=== PATIENT | male | born 1960 | race Caucasian/White ===

== ENCOUNTER 2017-10-03 14:01 | Inpatient (IN) ==
[2017-10-03] MEDS ORDERED: 0.9 % SODIUM CHLORIDE 1,000 ML IV ONE (14:28)
[2017-10-03 14:56] LABS: Mean Corpuscular HGB Conc 33.9 g/dL (31.0-36.0); Mean Corpuscular Hemoglobin 30.5 pg (26.0-34.0); Platelet Count 179 K/mcL (140-440); RBC 4.64 M/mcL (4.50-5.90); Red Cell Distribution Width 12.9 % (11.5-14.5)
--- NOTE | 2017-10-03 15:22 | XRay Report ---
CLINICAL INFORMATION: Cough and shortness of breath COMPARISON: None. FINDINGS: Heart size, mediastinum and pulmonary vessels are normal. Small focal infiltrate has developed in the posterior lateral right lower lobe. Minor bibasilar atelectasis noted . No effusions. Bones and soft tissues are normal. IMPRESSION: Small infiltrate developing in the posterior lateral right lower lobe Interpreted and Authenticated by: Aravind Gonzalez 10/03/17
[2017-10-03] MEDS ORDERED: cefTRIAXone 1 GM VIAL IV ONE (15:25)
[2017-10-03] MEDS ORDERED: AZITHROMYCIN 500 MG in DEXTROSE 5% IN WATER 250 ML IV SCH (15:30)
[2017-10-03 15:37] LABS: ALT/SGPT 34 U/l (0-40); Albumin 3.7 gm/dL (3.2-5.2); Albumin/Globulin Ratio 0.9 (1.0-2.3); Alkaline Phosphatase 97 U/L (39-117); Blood Urea Nitrogen 13 mg/dl (6-20)
[2017-10-03] MEDS ORDERED: AZITHROMYCIN 500 MG VIAL IV ONE (15:39)
[2017-10-03 15:51] LABS: Band Neutrophils % 6 % (0-10); Lymphocytes % 16 % (15-49); Monocytes % (Manual) 7 % (1-12); Platelet Estimate NORMAL (NORMAL); RBC Morphology NORMAL (NORMAL); Segmented Neutrophils % 71 % (38-78)
[2017-10-03] MEDS ORDERED: AZITHROMYCIN 500 MG in 0.9 % SODIUM CHLORIDE 250 ML IV ONE (16:00)
[2017-10-03] MEDS ORDERED: INSULIN REGULAR, HUMAN 1 UNIT/0.01 ML UNIT IV ONE (16:16)
--- NOTE | 2017-10-03 17:00 | Internal Med History&Physical ---
Medical - H&P: [facility] Patient information: Note initiated : 10/03/17 at 4:58 pm Service Date, if different from initiated Date: [] Patient: Leonides Stoner 57 y/o M admitted on for shortness of breath, low O2 sat. Chief Complaint: Cough, sputum production, shortness of breath History of present illness: The patient's 58-year-old male with a history of type 2 diabetes on insulin and metformin, treated hypertension, treated hypercholesterolemia, treated hypothyroidism and presents with pulmonary illness. Patient had the onset of symptoms on September 29, cardiac chest cold with a sore throat. He felt feverish, had a temperature to 100.7 at one point when he checked it at home. He was having chills. During this time he developed a cough which is now productive of brownish/greenish sputum. Yesterday he started feeling short of breath. He presents to [facility] care today, was referred to the emergency department. In the emergency department, evaluation revealed hypoxia, room air saturations 87%, increased to 92% on 2 L. He did not have a leukocytosis, but had a mild bandemia and on chest radiograph had a developing right lower lobe infiltrate. He's being hospitalized for treatment of pneumonia and acute hypoxic respiratory failure. Patient has a cough productive of sputum is noted. His chest is felt a bit tight due to dyspnea over the last day. She had no lower extremity edema, no orthopnea. She had some nausea today without emesis. Started having loose stools today as well. Sugars been running high, he ran out of his Lantus the last few days while he was ill and had not gotten it refilled. He has no history of underlying lung disease. No history of cardiac disease. He has not received flu shot this year. Review of systems: Except as noted in history of present illness, the remainder of 11.2 systems is negative Medical - H&P: PMH Medical history: Hypothyroidism (Acute) Type II diabetes mellitus (Acute) Hypertension (Acute) Hyperlipidemia (Acute) Hypovitaminosis D (Acute) Degeneration of lumbar or lumbosacral intervertebral disc (Chronic) Surgical history: No pertinent past surgical history (Acute) Pertinent family history: Mother Diabetes mellitus Cerebrovascular accident (CVA) Brother Diabetes mellitus Unknown Heart problem Dementia Depressive disorder Macular degeneration Malignant neoplasm Grandmother (Paternal) Alzheimer's disease Grandfather (Paternal) Malignant neoplasm of colon Father Atherosclerosis of coronary artery Cardiac disease Heart valve disease Grandmother (Maternal) Diabetes mellitus Social history: The patient lives alone. Has remote tobacco use, none for many years. Occasionally drinks alcohol. Medical - H&P: Meds Home Medications Medication Instructions Recorded Confirmed Type levothyroxine 50 mcg tablet 50 mcg PO QDAY #60 tab 02/26/16 10/03/17 Rx lisinopril 5 mg tablet 5 mg PO QDAY #60 tab 02/26/16 10/03/17 Rx atorvastatin 10 mg tablet 10 mg PO QDAY #60 tab 03/09/16 10/03/17 Rx cholecalciferol (vitamin D3) 2,000 2,000 unit PO QDAY 03/09/16 10/03/17 History unit capsule insulin glargine 100 unit/mL (3 20 unit SUB-Q QAM #3 ml 03/09/16 10/03/17 Rx mL) subcutaneous pen metformin ER 1,000 mg 24 hr 1,000 mg PO BID #120 tab 03/09/16 10/03/17 Rx tablet,extended release pen needle, diabetic 32 gauge x See Dose Instructions .ROUTE 03/09/16 10/03/17 Rx 5/32" .MEDSUPPLY #100 each Allergies Allergy/AdvReac Type Severity Reaction Status Date / Time Penicillins Allergy Unknown Unknown Verified 10/03/17 13:43 Medical - H&P: Exam - Constitutional Vitals: Temp Pulse Resp BP Pulse Ox 98.9 F 107 H 21 137/91 85 L 10/03/17 14:02 10/03/17 14:02 10/03/17 14:24 10/03/17 14:24 10/03/17 14:02 Exam: General: Alert, in no acute distress HEENT: Normocephalic. Pupils are equally round and reactive to light. Sclera are anicteric. No conjunctival injection. Oropharynx with injection of the posterior pharynx, no exudate. Moist mucous membranes, no lip or gum lesions. Tongue is midline. Neck: Supple, no meningismus. No thyromegaly. Chest: Respirations mildly labored, rhonchi in the right lower lobe, coarse breath sounds with occasional expiratory wheeze. Cardiovascular: Regular rate and rhythm without murmur gallop or rub. Carotid pulses are 2+ without bruit. There is no lower extremity edema. JVP is normal. Abdomen: Soft, nontender without guarding or rebound. Active bowel sounds. No hepatosplenomegaly. Lymphatic: No cervical or supraclavicular lymphadenopathy. Skin: Warm, dry. No rash. Skin turgor is normal Musculoskeletal: No joint erythema or tenderness. Normal range of motion in the upper and lower extremities. Strength 5/5 in upper and lower extremities. Digits without cyanosis or clubbing. Neuro: Alert, oriented X3. Cranial nerves II through XII grossly intact. Sensation intact to light touch. Psychiatric: Affect and orientation are normal. Insight normal. Medical - H&P: Reslt - Labs CBC & Chem 7: 10/03/17 14:25 10/03/17 14:25 Labs: Laboratory Results - last 24 hr 10/03/17 10/03/17 10/03/17 14:25 14:25 14:25 WBC 10.3 RBC 4.64 Hgb 14.2 Hct 41.8 MCV 90.0 MCH 30.5 MCHC 33.9 RDW 12.9 Plt Count 179 MPV 7.6 Total Counted 100 Seg Neutrophils % 71 Band Neutrophils % 6 Lymphocytes % 16 Monocytes % (Manual) 7 Platelet Estimate Normal RBC Morphology Normal D-Dimer VBG Lactic Acid 1.5 Sodium 133 Potassium 4.4 Chloride 91 L Carbon Dioxide 23 Anion Gap 19.0 H BUN 13 Creatinine 0.9 GFR Calculation 96 Glucose 475 H* Calcium 9.2 Total Bilirubin 0.5 AST 26 ALT 34 Alkaline Phosphatase 97 Total Protein 7.7 Albumin 3.7 Globulin 4.0 H Albumin/Globulin Ratio 0.9 L 10/03/17 10/03/17 14:25 14:25 WBC RBC Hgb Hct MCV MCH MCHC RDW Plt Count MPV Total Counted Not Reportable Seg Neutrophils % TNP Band Neutrophils % Not Reportable Lymphocytes % Monocytes % (Manual) Platelet Estimate Not Reportable RBC Morphology Not Reportable D-Dimer 1.00 H VBG Lactic Acid Sodium Potassium Chloride Carbon Dioxide Anion Gap BUN Creatinine GFR Calculation Glucose Calcium Total Bilirubin AST ALT Alkaline Phosphatase Total Protein Albumin Globulin Albumin/Globulin Ratio - ABG Interpretation Interpretation: abnormal (hypoxia, PaO2 75 on 2 lpm NC) - EKG Data -: EKG Reviewed by Myself (sinus rhythm at 99 bpm, no acute injury pattern. Normal intervals and axis) - Imaging and Cardiology Chest x-ray Status: image reviewed by me (radiology read: Developing right lower lobe infiltrate.) Medical - H&P: A/P (1) Pneumonia Current visit: Yes Status: Acute (2) Acute respiratory failure with hypoxia Current visit: Yes Status: Acute (3) Hypothyroidism Current visit: Yes Status: Chronic (4) Type II diabetes mellitus Current visit: Yes Status: Chronic (5) Hypertension Current visit: Yes Status: Chronic (6) Hyperlipidemia Current visit: Yes Status: Chronic - Narrative A/P Narrative: 57-year-old male with diabetes, presents with approximate 6 days of pulmonary symptoms at her progressed with dyspnea, cough and sputum production. Pneumonia. Has developing right lower lobe infiltrate. Heart rate is normal, no fever here. White count is normal though a 6% bandemia. Does not meet meet criteria for SIRS or sepsis. Lactate is normal. Suspect community-acquired pneumonia. Associated with respiratory failure and hypoxia. Plan 1. Inpatient admission 2. Continue ceftriaxone and azithromycin 3. Follow-up cultures 4. Since sputum culture 5. Influenza vaccine before discharge Acute hypoxic respiratory failure. Secondary to pneumonia. No history of intrinsic lung disease. D-dimer is 1.0, though lower suspicion for pulmonary and wasn't given plausible alternative explanation for symptoms with this acute pulmonary illness. Wells score is 0. Plan: Supplemental oxygen as needed to maintain sats above 92, treated pneumonia. Hypertension. Unknown control at home. On low-dose lisinopril. Plan: Resume home medications when reconciled, for low blood pressure. Type 2 diabetes mellitus. Poor control of presentation. Has not been to see his PCP for over a year. Not sure his baseline control. He did run out of Lantus a few days ago which does explain part of his elevated glucose. On metformin at home as well. Plan: Continue with Lantus, sliding scale insulin, controlled carbohydrate diet , hold metformin and acute illness. Hyperlipidemia Plan: Continue with home medication. Hypothyroidism. On levothyroxine home. Plan: Continue levothyroxine, check TSH. CODE STATUS is discussed with patient, he is full code. Prophylaxis: PPI and Lovenox.
[2017-10-03] MEDS ORDERED: ONDANSETRON 4 MG/2 ML VIAL IV PRN (18:23)
[2017-10-03] MEDS ORDERED: DEXTROSE 50% 50 ML VIAL IV PRN (18:23)
[2017-10-03] MEDS ORDERED: ACETAMINOPHEN 325 MG TABLET PO PRN (18:23)
[2017-10-03] MEDS ORDERED: DEXTROSE 31 GM ORAL.SUSP PO PRN (18:23)
[2017-10-03] MEDS ORDERED: ALBUTEROL SULFATE 2.5 MG/3 ML NEBULIZER NEB PRN (18:23)
[2017-10-03] MEDS: 0.9 % SODIUM CHLORIDE 1,000 ML IV SCH (19:21)
[2017-10-03] MEDS: ALBUTEROL SULFATE 2.5 MG/3 ML NEBULIZER NEB SCH ×2 (19:22→23:05)
[2017-10-03] MEDS ORDERED: ALBUTEROL SULFATE 2.5 MG/3 ML NEBULIZER ONE (19:26)
[2017-10-03] MEDS: INSULIN LISPRO 1 UNIT/0.01 ML UNIT SQ SCH ×2 (19:32→21:52)
[2017-10-03] MEDS ORDERED: INSULIN LISPRO 1 UNIT/0.01 ML UNIT SQ ONE (19:40)
[2017-10-04 00:07] LABS: Hemoglobin A1C 14.2 % HGB (4.0-6.0)
[2017-10-04] MEDS: 0.9 % SODIUM CHLORIDE 1,000 ML IV SCH ×3 (05:34→22:50)
[2017-10-04 06:49] LABS: Mean Cell Volume 90.5 fL (80.0-100.0); Mean Corpuscular HGB Conc 33.4 g/dL (31.0-36.0); Mean Corpuscular Hemoglobin 30.3 pg (26.0-34.0); Platelet Count 164 K/mcL (140-440); Red Cell Distribution Width 13.1 % (11.5-14.5)
[2017-10-04] MEDS: ALBUTEROL SULFATE 2.5 MG/3 ML NEBULIZER NEB SCH ×5 (07:09→23:19)
[2017-10-04 07:13] LABS: Blood Urea Nitrogen 11 mg/dl (6-20)
[2017-10-04 07:40] LABS: Lymphocytes % 18 % (15-49); Monocytes % (Manual) 10 % (1-12); Platelet Estimate NORMAL (NORMAL); RBC Morphology NORMAL (NORMAL); Segmented Neutrophils % 72 % (38-78)
--- NOTE | 2017-10-04 08:05 | Emergency Department Note ---
General Adult HPI - General Chief complaint: Shortness of Breath/Dyspnea Stated complaint: shortness of breath, low O2 sat Time Seen by Provider: 10/03/17 14:34 Source: patient Mode of arrival: ambulatory Limitations: no limitations - History of Present Illness HPI Narrative: Patient referred over from [facility] for workup patient was running low sats in the high 80s. Is been feeling feverish E cough with some shortness of breath. Is been present for approximately 3 days. Patient is a non-smoker has no history of asthma or COPD had no nausea vomiting or diarrhea no hematemesis no melena.. The patient is afebrile his sats did go up to 90-93% with 2 L of O2 - Related Data Home Medications Medication Instructions Recorded Confirmed cholecalciferol (vitamin D3) 2,000 2,000 unit PO QDAY 03/09/16 10/03/17 unit capsule Pen Needle, Diabetic [Unifine 1 SQ QDAY 10/03/17 Pentips Plus] Previous Rx's Medication Instructions Recorded levothyroxine 50 mcg tablet 50 mcg PO QDAY #60 tab 02/26/16 lisinopril 5 mg tablet 5 mg PO QDAY #60 tab 02/26/16 atorvastatin 10 mg tablet 10 mg PO QDAY #60 tab 03/09/16 insulin glargine 100 unit/mL (3 20 unit SUB-Q QAM #3 ml 03/09/16 mL) subcutaneous pen metformin ER 1,000 mg 24 hr 1,000 mg PO BID #120 tab 03/09/16 tablet,extended release Allergies Allergy/AdvReac Type Severity Reaction Status Date / Time Penicillins Allergy Unknown Unknown Verified 10/03/17 13:43 Review of Systems All systems ED: reviewed and negative except as stated. Constitutional: Reports: other. Denies: fever, chills Eyes: Denies: eye pain (Malaise achiness) ENT ED: Denies: ear pain Cardiovascular: Denies: chest pain, palpitations Respiratory: Reports: shortness of breath, cough. Denies: wheezes Gastrointestinal: Denies: abdominal pain, nausea, vomiting Genitourinary: Denies: dysuria, frequency Musculoskeletal: Denies: back pain Integumentary: Denies: rash Neurological: Denies: headache Psychiatric: Denies: anxiety Endocrine: Denies: fatigue Hematological/Lymphatic: Denies: easy bleeding Allergic/Immunologic: Denies: facial swelling Past Medical History - Past Medical History Medical history: Reports: non-contributory Surgical history ED: Reports: non-contributory Family history: Reports: non-contributory - Social History smoking status: Never smoker Alcohol use: Reports: Rarely Drug use: Reports: none Physical Exam Limitations: no limitations General appearance: alert, anxious Head: atraumatic Eye: Present: normal appearance, PERRL ENT: normal exam, normal oropharynx, mucous membranes moist Neck: Present: normal inspection, full ROM, trachea midline Chest: Present: normal inspection, symmetric chest wall rise. Absent: tenderness Respiratory: Present: normal lung sounds bilaterally. Absent: wheezes, stridor Cardiovascular: Present: regular rate, normal rhythm. Absent: bradycardia, tachycardia Abdominal: Present: soft, normal bowel sounds. Absent: distention, tenderness, guarding, rebound, rigidity Extremities: Present: normal inspection, full ROM. Absent: tenderness Back: Present: normal inspection, full ROM, muscle spasm. Absent: tenderness, CVA tenderness (R), CVA tenderness (L) Neurological: Present: alert, oriented X3, CN II-XII intact Psychiatric: Present: normal affect, normal mood. Absent: depressed, agitated Skin: Present: warm, dry, intact Course Vital Signs Temperature 98.9 F 10/03/17 14:02 Pulse Rate 107 H 10/03/17 14:02 Respiratory Rate 30 H 10/03/17 14:02 Blood Pressure 113/74 10/03/17 14:02 Pulse Oximetry (%) 85 L 10/03/17 14:02 Temperature 98.4 F 10/04/17 07:52 Pulse Rate 80 10/04/17 07:44 Respiratory Rate 24 H 10/04/17 07:52 Blood Pressure 125/70 10/04/17 07:52 Pulse Oximetry (%) 89 L 10/04/17 07:52 Medical Decision Making - MDM Narrative Medical decision making narrative: His x-ray shows right lower lobe infiltrate. Diabetes 475 patient was given insulin. Take was only 1.5 has not been hypotensive. Required O2 for saturations at 92-93%. Frank contacted patient to be admitted for pneumonia his influenza test was positive influenza B - Lab Data Result diagrams: 10/04/17 04:08 10/04/17 04:08 Lab Results 10/03/17 10/03/17 10/03/17 Range/Units 14:25 14:25 14:25 WBC 10.3 (4.5-11.0) K/mcL RBC 4.64 (4.50-5.90) M/mcL Hgb 14.2 (13.5-16.5) g/dL Hct 41.8 (41.0-55.0) % MCV 90.0 (80.0-100.0) fL MCH 30.5 (26.0-34.0) pg MCHC 33.9 (31.0-36.0) g/dL RDW 12.9 (11.5-14.5) % Plt Count 179 (140-440) K/mcL MPV 7.6 (7.4-10.4) fL Total Counted 100 Seg Neutrophils % 71 (38-78) % Band Neutrophils % 6 (0-10) % Lymphocytes % 16 (15-49) % Monocytes % (Manual) 7 (1-12) % Platelet Estimate Normal (NORMAL) RBC Morphology Normal (NORMAL) D-Dimer (0.00-0.40) ug/ml VBG Lactic Acid 1.5 (0.5-2.2) mmol/L Sodium 133 (133-145) mmol/L Potassium 4.4 (3.3-5.1) mmol/L Chloride 91 L (96-108) mmol/L Carbon Dioxide 23 (22-30) mmol/L Anion Gap 19.0 H (8-16) BUN 13 (6-20) mg/dl Creatinine 0.9 (0.7-1.2) mg/dl GFR Calculation 96 Glucose 475 H* (70-105) mg/dL Hemoglobin A1c (4.0-6.0) % HGB Estim Average Glucose mg/dL Calcium 9.2 (8.6-10.4) mg/dl Total Bilirubin 0.5 (0.0-1.0) mg/dL AST 26 (0-37) U/l ALT 34 (0-40) U/l Alkaline Phosphatase 97 (39-117) U/L Total Protein 7.7 (5.9-8.4) gm/dL Albumin 3.7 (3.2-5.2) gm/dL Globulin 4.0 H (2.2-3.7) gm/dL Albumin/Globulin Ratio 0.9 L (1.0-2.3) 10/03/17 10/03/17 10/03/17 Range/Units 14:25 14:25 14:25 WBC (4.5-11.0) K/mcL RBC (4.50-5.90) M/mcL Hgb (13.5-16.5) g/dL Hct (41.0-55.0) % MCV (80.0-100.0) fL MCH (26.0-34.0) pg MCHC (31.0-36.0) g/dL RDW (11.5-14.5) % Plt Count (140-440) K/mcL MPV (7.4-10.4) fL Total Counted Not Reportable Seg Neutrophils % TNP (38-78) % Band Neutrophils % Not Reportable (0-10) % Lymphocytes % (15-49) % Monocytes % (Manual) (1-12) % Platelet Estimate Not Reportable (NORMAL) RBC Morphology Not Reportable (NORMAL) D-Dimer 1.00 H (0.00-0.40) ug/ml VBG Lactic Acid (0.5-2.2) mmol/L Sodium (133-145) mmol/L Potassium (3.3-5.1) mmol/L Chloride (96-108) mmol/L Carbon Dioxide (22-30) mmol/L Anion Gap (8-16) BUN (6-20) mg/dl Creatinine (0.7-1.2) mg/dl GFR Calculation Glucose (70-105) mg/dL Hemoglobin A1c 14.2 H (4.0-6.0) % HGB Estim Average Glucose 361 mg/dL Calcium (8.6-10.4) mg/dl Total Bilirubin (0.0-1.0) mg/dL AST (0-37) U/l ALT (0-40) U/l Alkaline Phosphatase (39-117) U/L Total Protein (5.9-8.4) gm/dL Albumin (3.2-5.2) gm/dL Globulin (2.2-3.7) gm/dL Albumin/Globulin Ratio (1.0-2.3) Disposition 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
[2017-10-04] MEDS: INSULIN LISPRO 1 UNIT/0.01 ML UNIT SQ SCH ×4 (09:14→21:19)
[2017-10-04] MEDS: ENOXAPARIN 40 MG/0.4 ML SYRINGE SQ SCH (09:15)
[2017-10-04] MEDS: PANTOPRAZOLE 40 MG TABLET PO SCH (09:15)
[2017-10-04] MEDS: ATORVASTATIN 20 MG TABLET PO SCH (09:15)
[2017-10-04] MEDS: LEVOTHYROXINE 50 MCG TABLET PO SCH (09:15)
[2017-10-04] MEDS: LISINOPRIL 5 MG TABLET PO SCH (09:16)
--- NOTE | 2017-10-04 09:51 | Internal Med Progress Note ---
Medical - PN: Subj Patient information: Note initiated : 10/04/17 at 9:49 am Service Date, if different from initiated Date: [] Patient: Leonides Stoner 57 y/o M admitted on 10/03/17 for shortness of breath, low O2 sat. Chief Complaint: Follow up pneumonia Interval history: Oct 03 The patient's 58-year-old male with a history of type 2 diabetes on insulin and metformin, treated hypertension, treated hypercholesterolemia, treated hypothyroidism and presents with pulmonary illness. Patient had the onset of symptoms on September 29, cardiac chest cold with a sore throat. He felt feverish, had a temperature to 100.7 at one point when he checked it at home. He was having chills. During this time he developed a cough which is now productive of brownish/greenish sputum. Yesterday he started feeling short of breath. He presents to [facility] care today, was referred to the emergency department. In the emergency department, evaluation revealed hypoxia, room air saturations 87%, increased to 92% on 2 L. He did not have a leukocytosis, but had a mild bandemia and on chest radiograph had a developing right lower lobe infiltrate. He's being hospitalized for treatment of pneumonia and acute hypoxic respiratory failure. Patient has a cough productive of sputum is noted. His chest is felt a bit tight due to dyspnea over the last day. She had no lower extremity edema, no orthopnea. She had some nausea today without emesis. Started having loose stools today as well. Sugars been running high, he ran out of his Lantus the last few days while he was ill and had not gotten it refilled. He has no history of underlying lung disease. No history of cardiac disease. He has not received flu shot this year. Oct 04 Starting to feel better today. Less dyspnea. Still with productive cough of purulent-appearing sputum. Sputum samples been sent to the lab. Had low-grade fever last night. Still requiring oxygen. - Constitutional Vitals: Vital Signs Temp Pulse Resp BP Pulse Ox 98.4 F 91 H 24 H 125/70 89 L 10/04/17 07:52 10/04/17 08:00 10/04/17 07:52 10/04/17 07:52 10/04/17 08:00 Period Temp Pulse Resp BP Sys/Pressley Pulse Ox Last 24 Hr 98.4 F-99.8 F 80-107 16-30 113-152/68-91 85-94 Intake and Output 10/03/17 10/04/17 10/04/17 21:59 05:59 13:59 Intake Total 1000 / 1000 1690 / 1690 Balance 1000 / 1000 1690 / 1690 Weight 275 lb 4.8 oz Intake & Output: Intake & Output 10/03/17 10/04/17 10/04/17 21:59 05:59 13:59 Intake Total 1000 / 1000 1690 / 1690 Balance 1000 / 1000 1690 / 1690 Weight 275 lb 4.8 oz Intake: IV 1000 / 1000 1000 / 1000 Sodium Chloride 0.9% 1,000 ml @ 1000 / 1000 1000 / 1000 100 mls/hr IV .Q10H [facility] Rx#: [id number] Oral 690 / 690 Exam: General: Mildly ill-appearing Chest: Faint right lower rales, otherwise clear, no wheezing today Cardiovascular: Regular, no edema Abdomen: Soft, nontender, active bowel sounds Neuro: Alert, oriented 3. KENNEY with equal strength. Nonfocal. Medical - PN: Obj Da - Labs CBC & Chem 7: 10/04/17 04:08 10/04/17 04:08 Labs: Abnormal Lab Results 10/04/17 10/04/17 10/03/17 04:08 04:08 14:25 RBC 3.90 L Hgb 11.8 L Hct 35.3 L D-Dimer Chloride Anion Gap Glucose 227 H Hemoglobin A1c 14.2 H Calcium 8.5 L Globulin Albumin/Globulin Ratio 10/03/17 10/03/17 14:25 14:25 RBC Hgb Hct D-Dimer 1.00 H Chloride 91 L Anion Gap 19.0 H Glucose 475 H* Hemoglobin A1c Calcium Globulin 4.0 H Albumin/Globulin Ratio 0.9 L Microbiology 10/03/17 20:30 Gram Stain - Final Sputum - Expectorated Meds: Medications Acetaminophen (Tylenol) 650 mg PO Q6HP PRN PRN Reason: PAIN/FEVER > 101 Albuterol Sulfate (Ventolin) 2.5 mg NEB [id number] [facility] Last Admin: 10/04/17 07:09 Dose: 2.5 mg Albuterol Sulfate (Ventolin) 2.5 mg NEB Q2HP PRN PRN Reason: Shortness Of Breath Atorvastatin Calcium (Lipitor) 10 mg PO DAILY [facility] Last Admin: 10/04/17 09:15 Dose: 10 mg Ceftriaxone Sodium (Rocephin) 1 gm IV Q24H [facility] Dextrose (Dextrose 50%) 0 ml IV UD PRN PRN Reason: Hypoglycemia Diagnostic Test (Pha) (Accu-Chek) 1 each FS ACHS [facility] Last Admin: 10/04/17 09:14 Dose: 1 each Enoxaparin Sodium (Lovenox) 40 mg SQ DAILY [facility] Last Admin: 10/04/17 09:15 Dose: 40 mg Glucose (Insta-Glucose) 15 gm PO PRN PRN PRN Reason: Hypoglycemia Azithromycin 500 mg/ Sodium (Chloride) 250 mls @ 250 mls/hr IV Q24H [facility] Stop: 10/06/17 10:59 Sodium Chloride (Sodium Chloride 0.9%) 1,000 mls @ 100 mls/hr IV .Q10H [facility] Last Admin: 10/04/17 05:34 Dose: 100 mls/hr Insulin Glargine (Lantus) 20 unit SQ [facility] Insulin Human Lispro (Humalog) 0 unit SQ [facility] PRN Reason: Protocol Last Admin: 10/04/17 09:14 Dose: 8 unit [facility]) [facility] Admin: 10/04/17 09:15 Dose: 50 mcg Lisinopril (Zestril) 5 mg PO QDAY [facility] Last Admin: 10/04/17 09:16 Dose: 5 mg Ondansetron HCl (Zofran) 4 mg IV Q4HP PRN PRN Reason: Nausea And Vomiting Pantoprazole Sodium (Protonix) 40 mg PO [facility] Last Admin: 10/04/17 09:15 Dose: 40 mg Pneumococcal Polyvalent Vaccine (Pneumovax 23) 0.5 ml IM .ONCE ONE Stop: 10/05/17 10:01 Medical - PN: A/P - Time Spent With Patient Total time spent is greater than 50% in coordination of care (as documented) at patient's floor/unit and/or counseling patient: 25 - 35 minutes (1) Pneumonia Status: Acute Current Visit: Yes (2) Acute respiratory failure with hypoxia Status: Acute Current Visit: Yes (3) Hypothyroidism Status: Chronic Current Visit: Yes (4) Type II diabetes mellitus Status: Chronic Current Visit: Yes (5) Hypertension Status: Chronic Current Visit: Yes (6) Hyperlipidemia Status: Chronic Current Visit: Yes - Narrative A/P Narrative: 57-year-old male with diabetes, presents with approximate 6 days of pulmonary symptoms at her progressed with dyspnea, cough and sputum production. Pneumonia. Has developing right lower lobe infiltrate. Heart rate is normal, no fever here. White count is normal though a 6% bandemia. Does not meet meet criteria for SIRS or sepsis. Lactate is normal. Suspect community-acquired pneumonia. Associated with respiratory failure and hypoxia. Improving 10/04. Plan: Continue ceftriaxone and azithromycin, follow-up cultures and sputum sample; influenza vaccine and pneumovax before discharge Acute hypoxic respiratory failure. Secondary to pneumonia. No history of intrinsic lung disease. Plan: Supplemental oxygen as needed to maintain sats above 92, treat pneumonia. Hypertension. Unknown control at home. On low-dose lisinopril. Plan: Resume home medications when reconciled, hold for low blood pressure. Type 2 diabetes mellitus. Poor control of presentation. Has not been to see his PCP for over a year. HbA1c 14.2, indicating poor control. He did run out of Lantus a few days ago which does explain part of his elevated glucose. On metformin at home as well. Plan: Continue with Lantus, sliding scale insulin, controlled carbohydrate diet , hold metformin and acute illness. clinical systems educator referral. Hyperlipidemia Plan: Continue with home medication. Hypothyroidism. On levothyroxine home, euthyroid on replacement Plan: Continue levothyroxine Medical - PN: Qual - VTE Deep Vein Thrombosis/Pulmonary Embolism Present on Admission: No
[2017-10-04] MEDS: INSULIN GLARGINE, HUMAN 1 UNIT/0.01 ML SQ SCH (10:21)
[2017-10-04] MEDS: AZITHROMYCIN 500 MG in 0.9 % SODIUM CHLORIDE 250 ML IV SCH (10:48)
[2017-10-04] MEDS: cefTRIAXone 1 GM VIAL IV SCH (10:48)
[2017-10-04] MEDS ORDERED: cefTRIAXone 1 GM in DEXTROSE 5% IN WATER 50 ML IV SCH (15:00)
[2017-10-05 06:18] LABS: Mean Cell Volume 90.4 fL (80.0-100.0); Mean Corpuscular HGB Conc 33.6 g/dL (31.0-36.0); Mean Corpuscular Hemoglobin 30.4 pg (26.0-34.0); Platelet Count 236 K/mcL (140-440); RBC 4.17 M/mcL (4.50-5.90); Red Cell Distribution Width 12.9 % (11.5-14.5)
[2017-10-05 06:36] LABS: Blood Urea Nitrogen 11 mg/dl (6-20)
[2017-10-05] MEDS: ALBUTEROL SULFATE 2.5 MG/3 ML NEBULIZER NEB SCH ×2 (07:03→11:19)
[2017-10-05] MEDS ORDERED: POTASSIUM CHLORIDE 40 MEQ in 0.9 % SODIUM CHLORIDE 500 ML IV ONE (07:45)
[2017-10-05] MEDS: PANTOPRAZOLE 40 MG TABLET PO SCH (07:51)
[2017-10-05] MEDS: INSULIN LISPRO 1 UNIT/0.01 ML UNIT SQ SCH ×2 (07:51→12:15)
[2017-10-05] MEDS: LEVOTHYROXINE 50 MCG TABLET PO SCH (07:51)
[2017-10-05 07:57] LABS: Band Neutrophils % 1 % (0-10); Lymphocytes % 38 % (15-49); Monocytes % (Manual) 7 % (1-12); Platelet Estimate NORMAL (NORMAL); RBC Morphology NORMAL (NORMAL); Segmented Neutrophils % 54 % (38-78)
[2017-10-05] MEDS: 0.9 % SODIUM CHLORIDE 1,000 ML IV SCH (08:49)
[2017-10-05] MEDS: ATORVASTATIN 20 MG TABLET PO SCH (09:00)
[2017-10-05] MEDS: LISINOPRIL 5 MG TABLET PO SCH (09:01)
[2017-10-05] MEDS: ENOXAPARIN 40 MG/0.4 ML SYRINGE SQ SCH (09:02)
[2017-10-05] MEDS: INSULIN GLARGINE, HUMAN 1 UNIT/0.01 ML SQ SCH (09:02)
[2017-10-05] MEDS: cefTRIAXone 1 GM VIAL IV SCH (09:15)
[2017-10-05] MEDS ORDERED: FLU VACC QS2017-18 36MOS UP/PF 60 MCG/0.5 ML SYRINGE IM ONE (10:00)
[2017-10-05] MEDS ORDERED: PNEUMOCOCCAL 23-VAL P-SAC VAC 0.5 ML VIAL IM ONE (10:00)
--- NOTE | 2017-10-05 10:32 | XRay Report ---
CLINICAL INFORMATION: Follow-up small right lower lobe pneumonia COMPARISON: 10/03/2017 FINDINGS: Heart size, mediastinum and pulmonary vessels are normal. Small right lower lobe infiltrate has almost cleared. Mild bibasilar atelectasis noted. No effusion. Bones and soft tissues normal IMPRESSION: Complete resolution in small right lower lobe infiltrate Interpreted and Authenticated by: Aravind Gonzalez 10/05/17
--- NOTE | 2017-10-05 12:44 | Discharge Summary ---
Medical - DS: Prov Patient information: Note initiated : 10/05/17 at 12:41 pm Service Date, if different from initiated Date: [] Patient: Leonides Stoner 57 y/o M admitted on 10/03/17 for SOB, Low O2 sat/PNA, Hypoxic Respiratory Failure. Chief Complaint: [] Date of admission: 10/03/17 17:30 Discharge date: 10/05/17 Primary care physician: Errol Guidry Admitting clinician: Carly Velez Consults: 10/03/17 16:07 Consult to Physician [CONS] Stat Comment: Consulting Provider: Carly Velez Reason For Exam: Physician to Consult Discharging clinician: Jayleen Mehta Medical - DS: Meds - Discharge Medications Prescriptions: Levofloxacin [Levaquin] 500 mg PO DAILY #5 tab Active and Home Medications: Home Medications levothyroxine 50 mcg tablet 50 mcg PO QDAY #60 tab 02/26/16 [Rx Confirmed Last Taken 09/29/17 05:00] lisinopril 5 mg tablet 5 mg PO QDAY #60 tab 02/26/16 [Rx Confirmed 10/03/17 Last Taken 09/29/17 05:00] atorvastatin 10 mg tablet 10 mg PO QDAY #60 tab 03/09/16 [Rx Confirmed 10/03/17 Last Taken 09/29/17 05:00] cholecalciferol (vitamin D3) 2,000 unit capsule 2,000 unit PO QDAY 03/09/16 [ History Confirmed 10/03/17 Last Taken 09/29/17 05:00] insulin glargine 100 unit/mL (3 mL) subcutaneous pen 20 unit SUB-Q QAM #3 ml 05/17 [Rx Confirmed 10/03/17 Last Taken 09/29/17 05:00] metformin ER 1,000 mg 24 hr tablet,extended release 1,000 mg PO BID #120 tab 05/17 [Rx Confirmed 10/03/17 Last Taken 09/29/17 05:00] Medical - DS: Hosp Hospital course: Mr Stoner is a 58-year-old male with a history of type 2 diabetes on insulin and metformin, treated hypertension, treated hypercholesterolemia, treated hypothyroidism and presented with pulmonary illness. Patient had the onset of symptoms on September 29, cardiac chest cold with a sore throat. He felt feverish, had a temperature to 100.7 at one point when he checked it at home. He was having chills. During this time he developed a cough which is now productive of brownish/greenish sputum. Yesterday he started feeling short of breath. He presents to [facility] care today, was referred to the emergency department. In the emergency department, evaluation revealed hypoxia, room air saturations 87%, increased to 92% on 2 L. He did not have a leukocytosis, but had a mild bandemia and on chest radiograph had a developing right lower lobe infiltrate. He's being hospitalized for treatment of pneumonia and acute hypoxic respiratory failure. The patients pneumonia was treated with IV rocehpin and zithromax, the patient responded to the treatment very well, his Blood cultures were neg, Sputum cx is growing GPC intra and extra cellular, The patient has some pinkish sputum which is likely related to his pna and bronchitis. The patient had repeat X ray done on the , which showed resolution o the pneumonia. On presentation the patient had increased oxygen needs, which had resolved at the time of discharge. The rest of the stay in the hospital was unremarkable, no changes made to patients home medication list. At the time of discharge ,patient was feeling better, had no oxygen needs, tolerating po diet well and is ambulatory, Stable to be discharged home with PCP follow up Discharge diagnosis: Pneumonia/ bronchitis, - Time Spent with Patient Total time spent providing and/or coordinating discharge services: Less than 30 minutes Medical - DS: Exam - Constitutional Vitals: Vital Signs Temp Pulse Pulse Resp BP Pulse Ox 10/05/17 12:00 97.9 F 20 148/78 92 10/05/17 11:20 84 18 10/05/17 08:00 97.4 F 142/72 10/05/17 07:05 84 18 94 10/05/17 04:00 97.4 F 82 24 H 106/65 93 10/05/17 00:00 97.5 F 91 H 24 H 139/70 93 10/04/17 23:19 110 H 20 10/04/17 20:00 93 10/04/17 19:20 112 H 22 93 10/04/17 19:15 98.6 F 112 H 28 H 129/77 93 10/04/17 16:06 80 20 10/04/17 16:00 98.1 F 85 16 138/73 95 Intake and Output 10/04/17 10/05/17 10/05/17 21:59 05:59 13:59 Intake Total 1000 / 1000 700 / 700 998 / 998 Output Total 950 / 950 Balance 50 / 50 700 / 700 998 / 998 Intake: IV 1000 / 1000 998 / 998 Sodium Chloride 0.9% 1,000 ml @ 1000 / 1000 998 / 998 100 mls/hr IV .Q10H [facility] Rx#: [id number] Oral 700 / 700 Output: Void Amount 950 / 950 Other: Meal [place] Percent of Meal Consumed 100% Feeding Ability Independent # Voids 1 1 # of times incontinent of 1 Bowels Weight 268 lb 8 oz Additional comments: Constitutional; Afebrile, cooperative, alert, not in distress. Eyes- No icterus, , No periorbital swelling Ears- Ext ear normal, hearing normal to conversation. Neck- Midline trachea, supple Respiratory system: Air Entry equal on both sides, No crackles or wheezing, no rhonchi. CVS- Rate rhythm regular, S1,S2 heard, no gallop, no rub. Abdomen- Soft nontender abdomen, no organomegaly, no tenderness, no guarding or rigidity, FINANCIAL ASSOCIATE- AOOx3, moving all extremities, no gross focal deficit noted. Medical - DS: Data Labs on day of discharge: Labs from last 24 hours 10/05/17 10/05/17 04:40 04:40 WBC 6.4 RBC 4.17 L Hgb 12.7 L Hct 37.7 L MCV 90.4 MCH 30.4 MCHC 33.6 RDW 12.9 Plt Count 236 MPV 7.4 Total Counted 100 Seg Neutrophils % 54 Band Neutrophils % 1 Lymphocytes % 38 Monocytes % (Manual) 7 Platelet Estimate Normal RBC Morphology Normal Sodium 142 Potassium 3.6 Chloride 102 Carbon Dioxide 26 Anion Gap 14.0 BUN 11 Creatinine 0.7 GFR Calculation 106 Glucose 225 H Calcium 8.9 Preliminary micro results at discharge 10/03/17 20:30 Sputum Culture - Preliminary Sputum - Expectorated 10/03/17 14:40 Blood Culture - Preliminary Blood 10/03/17 14:46 Blood Culture - Preliminary Blood Medical - DS: A/P - Patient/Caregiver Discharge Instructions Activity: increase activity as tolerated Diet: Consistent Carbohydrate Additional Instructions: You were admitted to the hospital for PNA< which improved with treatments with antibiotics Please take levofloxacin for another 5 days Follow up with PCP in 1 week Go to the ER if worsening symptoms or any other concerning symptom. Your PCP may want to get a pulmonary function test once your infection is resolved, to evaluate for any underlying lung issues. Prescriptions: Levofloxacin [Levaquin] 500 mg PO DAILY #5 tab - Follow up Plan Follow up with: Sagar Guidry MD [Primary Care Provider] - Disposition: Home, Self-Care Prognosis: Fair Rehab Potential: Fair I certify that the patient requires SNF services: No Overall status at discharge: patient is progressing back to baseline Medical - DS: Qual - VTE Deep Vein Thrombosis/Pulmonary Embolism Present on Admission: No
[2017-10-05] MEDS: AZITHROMYCIN 500 MG in 0.9 % SODIUM CHLORIDE 250 ML IV SCH (14:19)
== END 2017-10-05 16:00 | disposition home or self-care (01) | DRG 193 ==
LOC: ED 14:01 → MEDSUR 17:30
PROVIDERS: ADMIT Internal Medicine; ATTEND Internal Medicine

== ENCOUNTER 2021-10-25 07:01 | Inpatient (IN) ==
--- NOTE | 2021-10-20 12:09 | XRay Report ---
HISTORY: Preop for cholecystectomy FINDINGS: Lung volumes are large. The upper lobes are hyperlucent and there is attenuation of the peripheral pulmonary vessels in both upper lobes. This suggests mild emphysema. There is no evidence of pneumonia, mass or congestive heart failure. The heart size, mediastinum, francois and pleura are normal. The hyperlucency in the upper lobes is more conspicuous today than it was on the prior x-ray done on 03/18/21. IMPRESSION: Possible mild emphysema. No acute abnormality Interpreted and Authenticated by: Luke Harvey 10/20/21
[2021-10-20 14:33] LABS: Basophils # (Auto) 0.02 K/mcL (0.00-0.30); Basophils % (Auto) 0.2 % (0.0-2.0); Eosinophils # (Auto) 0.18 K/mcL (0.00-0.70); Eosinophils % (Auto) 1.8 % (0.0-7.0); Hematocrit 43.3 % (40.1-51.0); Lymphocytes # (Auto) 3.51 K/mcL (1.50-4.80); Lymphocytes % (Auto) 34.8 % (15.5-49.0); Mean Cell Volume 87.8 fL (80.0-100.0); Mean Corpuscular HGB Conc 32.3 g/dL (31.0-36.0); Mean Platelet Volume 9.3 fL (7.4-10.4); Monocytes # (Auto) 0.78 K/mcL (0.10-0.90); Monocytes % (Auto) 7.7 % (1.0-12.0); Neutrophils % (Auto) 55.5 % (38.0-78.0); Platelet Count 329 K/mcL (140-440); RBC 4.93 M/mcL (4.63-6.08); Red Cell Distribution Width 14.6 % (11.5-14.5); WBC 10.1 K/mcL (4.5-11.0)
--- NOTE | 2021-10-20 14:57 | EKG ---
[facility] Test Date: 2021-10-20 Pat Name: Leonides Stoner Department: [facility] Room: Gender: Male Medicine Technologist: : 1960 Requested By: Roberth Vitale Order Number: [id number] Reading MD: Andrae Riley Measurements Intervals [place] Rate: 78 P: 68 MS: 148 QRS: 58 QRSD: 94 T: 56 QT: 386 QTc: 440 Interpretive Statements Sinus rhythm Electronically Signed On 10-20-2021 14:56:53 PST by Andrae Riley /store/M0/[id number]/[email or web address]/[id number].pdf
[2021-10-20 15:43] LABS: ALT/SGPT 103 U/L (<40); AST/SGOT 53 U/L (<40); Albumin 3.8 gm/dL (3.2-5.2); Alkaline Phosphatase 251 U/L (39-117); Bilirubin,Total 0.5 mg/dL (0.1-1.0); Blood Urea Nitrogen 12 mg/dL (6-20); Calcium 9.8 mg/dL (8.6-10.4); Carbon Dioxide 25 mmol/L (22-30); Chloride 102 mmol/L (96-108); Globulin 3.7 gm/dL (2.2-3.7); Glomerular Filtration Rate 98; Glucose 155 mg/dL (70-105)
[~2021-10-25 07:01] MED LIST: LEVOFLOXACIN 500 MG/100 ML BAG IV SCH
[2021-10-25] MEDS ORDERED: LIDOCAINE HCL/PF 100 MG/5 ML SYRINGE IV ONE (08:59)
[2021-10-25] MEDS ORDERED: fentaNYL 100 MCG/2 ML VIAL IV ONE ×2 (08:59→13:10)
[2021-10-25] MEDS ORDERED: DEXAMETHASONE 10 MG/ML VIAL ONE (08:59)
[2021-10-25] MEDS ORDERED: MAGNESIUM SULFATE 2 GM/50 ML BAG IV ONE (08:59)
[2021-10-25] MEDS ORDERED: KETAMINE 50 MG/ML Syringe (ANEST) IV ONE (08:59)
[2021-10-25] MEDS ORDERED: PROPOFOL 200 MG/20 ML VIAL IV ONE (08:59)
[2021-10-25] MEDS ORDERED: HYDROmorphone 1 MG/ML SYRINGE ONE (08:59)
[2021-10-25] MEDS ORDERED: ONDANSETRON 4 MG/2 ML VIAL ONE (08:59)
[2021-10-25] MEDS ORDERED: GLYCOPYRROLATE 0.2 MG/ML VIAL IV ONE (08:59)
[2021-10-25] MEDS ORDERED: SUGAMMADEX SODIUM 200 MG/2 ML VIAL IV ONE (08:59)
[2021-10-25] MEDS ORDERED: ROCURONIUM 10 MG/ML ML IV ONE (08:59)
[2021-10-25] MEDS ORDERED: HYDROCORTISONE 100 MG/60 ML BOTTLE PR ONE (08:59)
[2021-10-25] MEDS ORDERED: MIDAZOLAM 2 MG/2 ML VIAL ONE (08:59)
[2021-10-25] MEDS ORDERED: BUPIVACAINE W/EPI 0.5% 50 ML VIAL IJ ONE (09:28)
[2021-10-25] MEDS ORDERED: HYDROCORTISONE SOD SUCC 100 MG VIAL IV ONE (10:16)
[2021-10-25] MEDS ORDERED: CIPROFLOXACIN 400 MG/200 ML BAG IV ONE ×2 (10:41→13:01)
[2021-10-25] MEDS ORDERED: metroNIDAZOLE 500 MG/100 ML BAG IV ONE (10:42)
[2021-10-25] MEDS ORDERED: LABETALOL 5 MG/ML ML IV PRN (12:31)
[2021-10-25] MEDS ORDERED: KETOROLAC 30 MG/ML VIAL IV PRN (12:31)
[2021-10-25] MEDS ORDERED: BENZOCAINE/MENTHOL 1 LOZENGE PO PRN (12:31)
[2021-10-25] MEDS ORDERED: ePHEDrine 50 MG/ML AMPUL IV PRN (12:31)
[2021-10-25] MEDS ORDERED: ONDANSETRON 4 MG/2 ML VIAL IV PRN ×2 (12:31→12:50)
[2021-10-25] MEDS ORDERED: MEPERIDINE 25 MG/ML VIAL IV PRN (12:31)
[2021-10-25] MEDS ORDERED: fentaNYL 100 MCG/2 ML VIAL IV PRN (12:31)
[2021-10-25] MEDS ORDERED: ACETAMINOPHEN 1,000 MG/100 ML BAG IV ONE (12:31)
[2021-10-25] MEDS ORDERED: METHOCARBAMOL 1,000 MG/10 ML VIAL IV PRN (12:31)
[2021-10-25] MEDS ORDERED: IPRATROPIUM/ALBUTEROL 3 ML AMPUL.NEB NEB PRN (12:31)
[2021-10-25] MEDS ORDERED: LACTATED RINGERS 1,000 ML IV SCH (12:45)
--- NOTE | 2021-10-25 13:13 | Brief Operative Note ---
Brief Operative Note Date of procedure: 10/25/21 Pre-op diagnosis: Severe Cholecystitis Post-op diagnosis: other (Severe Cholecystitis with Cholecystocolonic Fistula ) Procedure: Lap to Open Partial Subtotal Cholecystectomy with Segmental Transverse Colectomy and Resection of CholecystoColonic Fistula Grafts/Implants: No (drains x 2) Anesthesia: GETA Findings: severely inflamed gallbladder with fistulization into Transverse Colon Complications: none Surgeon: Roberth Vitale Estimated blood loss (cc): 75 Specimens Removed/Pathology: other (Partial Gallbladder, Segment of Transverse Colon with Fistula ) Condition: stable Disposition: PACU
[2021-10-25] MEDS ORDERED: metroNIDAZOLE 500 MG/100 ML BAG IV SCH (13:15)
[2021-10-25] MEDS: DEXTROSE 5%-LR 1,000 ML IV SCH ×2 (14:04→23:00)
[2021-10-25] MEDS: 0.9 % SODIUM CHLORIDE 10 ML SYRINGE IV SCH ×2 (14:31→21:25)
[2021-10-25] MEDS: HYDROmorphone 0.5 MG/0.5 ML SYRINGE IV PRN (17:56)
[2021-10-25] MEDS: DOCUSATE SODIUM 100 MG CAPSULE PO SCH (21:24)
[2021-10-25] MEDS: SENNOSIDES 1 TABLET PO SCH (21:24)
[2021-10-25] MEDS: CIPROFLOXACIN 400 MG/200 ML BAG IV SCH (21:25)
[2021-10-25] MEDS: HYDROCORTISONE SOD SUCC 100 MG VIAL IV SCH (21:26)
[2021-10-26] MEDS: HYDROmorphone 0.5 MG/0.5 ML SYRINGE IV PRN ×5 (04:42→23:40)
[2021-10-26] MEDS: 0.9 % SODIUM CHLORIDE 10 ML SYRINGE IV SCH ×3 (06:49→23:35)
[2021-10-26] MEDS: DEXTROSE 5%-LR 1,000 ML IV SCH ×3 (06:49→17:56)
[2021-10-26] MEDS: HYDROCORTISONE SOD SUCC 100 MG VIAL IV SCH ×3 (06:54→21:37)
[2021-10-26 07:33] LABS: Hematocrit 27.9 % (40.1-51.0); Hemoglobin 9.3 g/dL (13.7-17.5); Mean Cell Volume 87.5 fL (80.0-100.0); Mean Corpuscular HGB Conc 33.3 g/dL (31.0-36.0); Mean Platelet Volume 9.6 fL (7.4-10.4); Platelet Count 240 K/mcL (140-440); RBC 3.19 M/mcL (4.63-6.08); Red Cell Distribution Width 14.8 % (11.5-14.5); WBC 15.2 K/mcL (4.5-11.0)
[2021-10-26 07:36] LABS: ALT/SGPT 72 U/L (<40); AST/SGOT 32 U/L (<40); Albumin 2.7 gm/dL (3.2-5.2); Alkaline Phosphatase 119 U/L (39-117); Bilirubin,Total 0.5 mg/dL (0.1-1.0); Blood Urea Nitrogen 23 mg/dL (6-20); Carbon Dioxide 24 mmol/L (22-30); Chloride 105 mmol/L (96-108); Globulin 2.6 gm/dL (2.2-3.7); Glomerular Filtration Rate 103; Glucose 215 mg/dL (70-105)
[2021-10-26] MEDS ORDERED: CIPROFLOXACIN 400 MG/200 ML BAG IV SCH (09:00)
--- NOTE | 2021-10-26 09:19 | Operative Note ---
DATE OF OPERATION: 10/25/2021 PREOPERATIVE DIAGNOSIS: Severe cholecystitis. POSTOPERATIVE DIAGNOSES: Severe cholecystitis with cholecystocolonic fistula. OPERATIVE PROCEDURE: 1. Laparoscopic converted to open partial/subtotal fenestrating cholecystectomy. 2. Segmental transverse colectomy with excision of cholecystocolonic fistula. SURGEON: Roberth Vitale M.D. TEST KITCHEN HOME ECONOMIST: Jacobo Spaulding M.D. ANESTHESIA: General. PREOPERATIVE MEDICATIONS: Levaquin 500 mg IV. INDICATIONS: The patient is a 61-year-old male who over the past year or so has lost quite a bit of weight and has had essentially symptoms of abdominal malaise that have continued for some time. This has included bloating and other issues. On repetitive imaging, he has been found to have inflammatory changes involving the gallbladder with marked distention, enlargement, and other findings and underwent both a HIDA scan ultrasound and CT, all of which were confirmatory for cystic duct obstruction and evolving, what appeared to be fairly severe, chronic cholecystitis that had evolved over many, many months. We saw him in consultation. I had concerns about the potential for gallbladder malignancy, but a followup ultrasound demonstrated no mass, and all of his tumor markers were negative. He had some tenderness up in that area, but really overall complained more of bloating and other symptoms rather than pain or discomfort in the right upper abdomen, and the reasons for the weight loss were not exactly clear. After an extensive workup, we recommended surgery. Risks, benefits, potential complications, and alternative treatment options were all discussed with him and his brother at prior visitations. These include, but are not limited to bleeding, infection, cosmetic dissatisfaction, abnormal scarring, conversion to an open procedure with a potential vertical midline laparotomy, potential need for drain placement, partial or subtotal removal, potential injury to surrounding structures, unexpected finding such as malignancy or other concerns, and the option to not undergo surgery. All of this was discussed with him at length and he gave full informed consent and wished to undergo the procedure. PROCEDURE IN DETAIL: The patient was taken to the operating room and placed supine on the OR table, placed under general anesthesia and intubated. Bilateral SCDs were applied. All pressure sensitive areas were carefully padded. His arms were placed out on arm boards and the abdomen was widely prepped and draped in a sterile fashion. The procedure began with access of the peritoneal cavity utilizing a 5 mm 0-degree scope through a 5 mm visiport trocar in the right upper abdomen utilizing standard technique. Once we had confirmed intra peritoneal access, we obtained pneumoperitoneum with high-flow CO2 insufflation and then carefully examined the area of access utilizing the 0 degree scope to make sure there was no evidence of injury; none was seen. We then changed out the 0 degree scope for the 30 degree scope and placed our remaining trocars. This included an additional 5 mm right upper abdominal working trocar, a 5mm periumbilical trocar and then also a 12 mm midline subxiphoid mid epigastric upper abdominal trocar. The patient was then placed in a reverse Trendelenburg position and tilted towards the left side; the camera was re sited to the periumbilical port. The gallbladder was not visible in the Right Upper Abdomen. There was an inflammatory mass in the typical location of the gallbladder adjacent to the edge of the liver. This appeared to consist of both omentum and transverse colon. We were able to clear the omentum off but the colon was adherent and would not come down with traction or blunt dissection. No thermal energy was used. It became apparent over time as I examined the area that there was likely a fistula between the Gallbladder and the Transverse Colon and given the uncertainty of the situation along with concerns regarding malignancy, I elected to convert to an open procedure. To this end, a vertical midline incision was made from the xiphoid process down to just above the umbilicus. We dissected down to the midline abdominal wall fascia, which was opened along the full length of the incision. We entered the peritoneum sharply and extended this along the entire length of the incision as well. Next, after completing this and after removing all prior trocars, we brought in a self-retaining Omni retractor to obtain exposure to this area. At this point, I was able to identify and confirm that the colon was indeed densely adherent to the right lateral aspect of the gallbladder and was able to dissect it free with blunt dissection and gentle pressure, which confirmed a fairly substantial opening between the colon here and the gallbladder itself. Bile could be seen leaking across this and this was what appeared to be a fairly mature cholecystocolonic fistula here. We temporarily placed several sutures to close the colonic opening and then directed our attention towards the gallbladder. In examining this area, it became apparent that really the entire lazaro was frozen down to and adherent to the lower aspect of the gallbladder, that these structures were essentially fused here, and in examining this further I did not feel it was [place] to proceed with any further attempt at a dissection or identification of the hepatocystic triangle or the lazaro itself. At this point, I elected to proceed with a partial or subtotal fenestrating cholecystectomy given the fact that there was already a fistula opening in it mid body just above the infundibulum. The entire anterior wall of the gallbladder was removed. There was a brisk flow of both bile and pus and some sludge-like debris. No discrete stones were noted. This was irrigated gently out, and then we assessed the area to make sure that the transected portions of the gallbladder wall were hemostatic and they appeared to be. At this point, I then directed my attention towards dealing with the fistula opening in the mid transverse colon. There was a fairly substantial inflammatory rind here that encompassed a fair amount of the anterior aspect of the transverse colon and in examining this area and trying to determine if I felt it could be closed primarily versus resecting it, I ultimately felt it was necessary to segmentally resect the colon here, particularly given concerns of possible malignancy, and perform a primary colonic anastomosis. To this end, we isolated out the transverse colon proximally and distally. We transected these points with sequential firings of the endovascular SOPHIE stapler. We then went ahead and utilized the LigaSure to take down the mesocolon attachments and removed this segment in its entirety. It was sent to Pathology as segmental transverse colon with excised cholecystocolonic fistula. Next, we brought the two segments of the proximal and distal transverse colons alongside one another after adequate mobilization, which included mobilizing the hepatic flexure up into the field and making sure that the duodenum was swept down and away and out of harm's way. At this point, we felt we had adequate colonic length for this and we made preparations to perform a [id number], end-to-end stapled anastomosis. The proximal and distal colonic ends were brought alongside one another with several interrupted 3-0 silk sutures. We then sharply opened up the antimesenteric staple line on both the proximal and distal colonic limbs, confirmed appropriate enterotomy into the lumen of the bowel here and then inserted the two arms of the SOPHIE-75 stapler into the lumen and brought these alongside together to perform a [id number] functional anastomosis with a single firing of the stapler. We then inspected the anastomosis, it appeared to be widely patent without bleeding. We then went ahead and made preparations to excise the common channel enterotomy by bringing this together with Allis clamps, elevated and away from the underlying area, and then utilizing the SOPHIE-75 stapler with blue loads to once again excise the common channel enterotomy in its entirety. This was checked on the back table and found to be very secure and the staple line itself appeared to be nicely intact without issue. Several sutures were placed on the antimesenteric surface of the proximal colonic limb to help take tension off the posterior aspect of the anastomosis near the crotch and these were tied down without difficulty utilizing 3-0 silk sutures. Next, we examined the anastomosis. It appeared to be widely patent without evidence of bleeding or hemorrhage and appeared to be well perfused. We irrigated the area out extensively. We then examined the infundibular gallbladder stump again. There was no obvious evidence of biliary leak at this point. We irrigated the area out extensively and made attempts to clear any stony debris further down into the neck and cystic duct. None could definitively be seen. We brought two drains in the size available to us into the field. One was a 10- [place] flat ESTER and the other was a 7-[place] round ESTER which was positioned in the gallbladder lumen itself. They were brought out through trocar sites in separate stab incisions, respectively, and secured in place with 3-0 silk sutures. Next, we irrigated out a final time and made sure there was no active bleeding or hemorrhage. We confirmed that our sponge, needle and instrument counts were correct, and then went ahead and closed the fascia with a running looped 0 PDS from above and below and tied in the midline. We then irrigated out the subcutaneous tissues and closed the skin with chiara. Sterile dressing was applied. Additionally, the remaining trocar sites were closed with chiara and also dressed appropriately. The patient was awakened, extubated, and transferred to PACU in satisfactory condition. There were no apparent complications or issues. Sponge and instrument counts were correct. Findings were as discussed above. Estimated blood loss was roughly 75 mL. BW:donny Job ID: [id number] Doc ID: [id number] Swati Lopes
[2021-10-26] MEDS: DOCUSATE SODIUM 100 MG CAPSULE PO SCH ×2 (09:26→21:41)
[2021-10-26] MEDS: CIPROFLOXACIN 400 MG/200 ML BAG IV SCH (09:34)
--- NOTE | 2021-10-26 09:55 | General Surgery Progress Note ---
SUBJECTIVE Subjective Patient information: Note initiated : 10/26/21 at 9:45 am Service Date, if different from initiated Date: [] Patient: Leonides Stoner 61 y/o M admitted on 10/25/21 for Laparoscopic Cholecystectomy, Possible Conversion . Chief Complaint: [POD #1 Lap to Open Subtotal Cholecystectomy with takedown and Segmental Colonic Resection of Cholecystocolonic Fistula] Some pain at drain sites this am, denies SOB or Chest Pain. Operative findings and results discussed with him at length. Constitutional Vitals: Vital Signs Temp Pulse Resp BP Pulse Ox 96.4 F L 75 20 104/62 94 10/26/21 06:59 10/26/21 07:50 10/26/21 07:50 10/26/21 06:59 10/26/21 07:50 Period Temp Pulse Resp BP Sys/Pressley Pulse Ox Last 24 Hr 96.4 F-98.8 F 53-93 8-21 75-173/41-93 86-99 Intake and Output 10/25/21 10/26/21 10/26/21 21:59 05:59 13:59 Intake Total 1000 1200 Output Total 220 415 Balance -439 911 1151 Weight 211 lb 8 oz Intake & Output: Intake & Output 10/25/21 10/26/21 10/26/21 21:59 05:59 13:59 Intake Total 1000 1200 Output Total 220 415 Balance -503 426 7752 Weight 211 lb 8 oz Intake: IV 1000 1200 Dextrose 5%-Lactated Ringers 1, 1000 1000 000 ml @ 125 mls/hr IV .Q8H [facility] Rx#:[id number] Output: Drainage 90 ESTER #2 60 ESTER Drain 30 Drainage 70 ESTER #2 40 ESTER Drain 30 Urine Catheter Amount 150 325 Other: Urine Appearance Clear Clear Uretheral ([place]) Clear Clear Urine Color Bright Yellow Dark Yellow Uretheral ([place]) Dark Yellow Dark Yellow Urine Odor Normal Strong General appearance: no acute distress Exam: conversant and non toxic Head Head exam: Present atraumatic and normocephalic Respiratory Additional comments: normal respiratory effort without distress Cardiovascular Cardiovascular exam: Present RRR GI/Abdominal Additional comments: dressings dry, belly soft and non distended, bilious gallbladder drain, other drain serosang. Additional comments: [place] in place A/P Narrative A/P Narrative: POD #1 Lap to Open Subtotal Cholecystectomy with takedown and Segmental Colonic Resection of Cholecystocolonic Fistula Doing ok at this time Will ask for Medicine Consult regarding blood pressure and diabetic managment Clear Sips OK, hold off on Hep SQ for now given somewhat blood ESTER drainage May end up requiring transfer for ERCP and Stent placement if bile leak becomes high volume and/or non resolving - this is discussed with him at length today OOB several times today Time Spent With Patient Time: Total time spent is greater than 50% in coordination of care (as documented) at patient's floor/unit and/or counseling patient:
[2021-10-26] MEDS: LEVOFLOXACIN 500 MG/100 ML BAG IV SCH (10:35)
[2021-10-26] MEDS ORDERED: DEXTROSE 31 GM ORAL.SUSP PO PRN (11:04)
[2021-10-26] MEDS ORDERED: DEXTROSE 50% 50 ML VIAL IV PRN (11:04)
--- NOTE | 2021-10-26 11:18 | Internal Medicine Consult Note ---
HPI Data of Consult Consult date: 10/26/21 Requesting physician: Roberth Vitale Primary Care Provider: Aravind Fields DO Consult Narrative Patient Information: Note initiated : 10/26/21 at 11:06 am Service Date, if different from initiated Date: [] Patient: Leonides Stoner 61 y/o M admitted on 10/25/21 for Laparoscopic Cholecystectomy, Possible Conversion . Chief Complaint: [] Patient is a 61 years old gentleman history of type 2 diabetes mellitus and orthostatic hypotension, presented on yesterday 10/25/21 with chief complaint of abdominal pain with diagnosis of severe cholecystitis with cholecysto colonic fistula. He was being taken to the OR on the same date by general surgeon Dr. Vitale who performed laparoscopic to open partial subtotal cholecystectomy with segmental transverse colectomy and resections of cholecysto colonic fistula with ESTER drains placement x2. Consultation requested for diabetes management as well as over static hypertension management. Fasting sugar this morning 215. Blood sugar level between 130s to 150s yesterday postoperatively. Hemoglobin A1c 6.0. At home patient only takes Metformin and does not use any insulin after losing a lot of weight. He also has history of orthostatic hypotension and after extensive cardiology work-up no specific diagnosis was made he was being prescribed with midodrine. Blood pressure in the range of 100s over 60s to 80s mmHg postoperatively. Chief complaint: abdominal pain Reason for consult: diabetes management cc:: CC: Roberth Vitale MD Constitutional Constitutional: Absent chills, excessive sweating, fatigue, fever(s) or weakness EENT Eyes: Absent blurry vision, change in vision, loss of vision or other visual disturbances Ears: Absent decreased hearing or tinnitus Nose, mouth and throat: Absent abnormal hearing, dry mouth, headache(s), nasal congestion or sore throat Cardiovascular Cardiovascular: Absent chest pain, chest pain at rest, edema, irregular heart rhythm or palpatations Respiratory Respiratory: Absent cough, dyspnea or wheezing Gastrointestinal Gastrointestinal: Absent abdominal pain, constipation, diarrhea, nausea or vomiting Musculoskeletal Musculoskeletal: Absent back pain, deformity, limited range of motion, muscle cramps, muscle weakness or numbness Integumentary Integumentary: Absent lesions, rash or wounds Neurological Neurological: Absent focal weakness, headache(s) or numbness Psychiatric Psychiatric: Absent anxiety, depression or hallucinations PFSH PFSH All Active Problems (Updated 10/26/21 @ 11:15 by Dong Mcneal MD) Cholecystocolonic fistula (Acute) Cholecystitis (Acute) Postoperative anemia (Acute) T2DM (type 2 diabetes mellitus) (Acute) BPH (benign prostatic hyperplasia) (Acute) Chronic cholecystitis (Acute) Abdominal pain (Acute) SARS-CoV-2 positive (Acute) Abdominal pain (Acute) Orthostatic hypotension (Acute) Diabetes mellitus with hyperglycemia (Acute) Pneumonia (Acute) Acute respiratory failure with hypoxia (Acute) Shortness of Breath (Acute) Right lower lobe pneumonia (Acute) Influenza B (Acute) Wheezing (Acute) Hypothyroidism (Chronic) Hypertension (Chronic) Hyperlipidemia (Chronic) Hypovitaminosis D (Acute) Medical History (Updated 10/26/21 @ 11:15 by Dong Mcneal MD) Abdominal pain Abdominal pain BPH (benign prostatic hyperplasia) Chronic cholecystitis Degeneration of lumbar or lumbosacral intervertebral disc Herniation L4-5 Diabetes mellitus with hyperglycemia Diabetes mellitus, type II Orthostatic hypotension Surgical History (Updated 10/26/21 @ 09:55 by Miesha Negro CMA) History of cholecystectomy 10/25/2021 Family History Mother Diabetes mellitus Cerebrovascular accident (CVA) Brother Diabetes mellitus Unknown Heart problem Dementia Depressive disorder Macular degeneration Malignant neoplasm Grandmother (Paternal) Alzheimer's disease Grandfather (Paternal) Malignant neoplasm of colon Father , 53 yrs Atherosclerosis of coronary artery Cardiac disease Heart valve disease Grandmother (Maternal) , 80 yrs Diabetes mellitus Social History marital status: single alcohol intake frequency: a few times a week substance use type: does not use MEDS/ALLERGIES Home Medications and Allergies Home Medications Medication Instructions Recorded Confirmed Type fludrocortisone 0.1 mg tablet 0.1 mg PO QDAY tab 05/04/21 10/20/21 History midodrine 5 mg tablet 5 mg PO TID tab 05/04/21 10/25/21 History metformin 500 mg tablet 500 mg PO BID #60 tab 08/17/21 10/20/21 Rx sodium chloride 1 gram tablet 2,000 mg PO BID tab 09/27/21 10/20/21 History Allergies Allergy/AdvReac Type Severity Reaction Status Date / Time Penicillins Allergy Unknown Unknown Verified 10/20/21 10:48 EXAM Constitutional Vitals: Temp Pulse Resp BP Pulse Ox 35.8 C L 75 20 104/62 94 10/26/21 06:59 10/26/21 07:50 10/26/21 07:50 10/26/21 06:59 10/26/21 07:50 General appearance: cooperative and no acute distress Head Head exam: Present atraumatic and normocephalic Eye Eye exam: Present EOMI and PERRL ENT ENT exam: Present mucous membranes moist, normal exam and normal external ear exam Neck Neck exam: Present normal inspection; Absent lymphadenopathy, tenderness or thyromegaly Respiratory Respiratory exam: Absent accessory muscle use, respiratory distress or wheezes Cardiovascular Cardiovascular exam: Present normal rate and rhythm; Absent JVD GI/Abdominal GI/Abdominal exam: Present soft, diminished bowel sounds and tenderness; Absent organomegaly Additional comments: ESTER jenkins X2 Laparoscopic and ventral open surgical incisions on the abdomen with diminished bowel sound and tenderness to palpation. Rectal Rectal exam: Present deferred Extremities Exam Extremities exam: Present full ROM, normal capillary refill and normal inspection; Absent tenderness Neurological Exam Neurological exam: Present alert, CN II-XII intact and oriented X3; Absent motor sensory deficit Psychiatric Psychiatric exam: Present normal affect and normal mood; Absent anxious or depressed Skin Skin exam: Present dry and intact DATA Data Completed and Pending Labs: Labs from last 24 hours 10/26/21 10/26/21 05:20 05:20 WBC 15.2 H RBC 3.19 L Hgb 9.3 L Hct 27.9 L MCV 87.5 MCH 29.2 MCHC 33.3 RDW 14.8 H Plt Count 240 MPV 9.6 Sodium 138 Potassium 4.4 Chloride 105 Carbon Dioxide 24 Anion Gap 9.0 BUN 23 H Creatinine 0.7 GFR Calculation 103 Glucose 215 H Calcium 8.0 L Total Bilirubin 0.5 AST 32 ALT 72 H Alkaline Phosphatase 119 H Total Protein 5.3 L Albumin 2.7 L Globulin 2.6 Albumin/Globulin Ratio 1.0 A/P Assessment and plan (1) T2DM (type 2 diabetes mellitus): Status: Acute (2) Orthostatic hypotension: Status: Acute (3) Postoperative anemia: Status: Acute (4) Cholecystitis: Status: Acute (5) Cholecystocolonic fistula: Status: Acute Narrative A/P Narrative: Assessment and Plans: 1. T2DM: HgA1c 6.0 Hold Metformin Accu Chek q6hr Low dose correctional scale insulin q6hr Hypoglycemia protocol NPO with sips with D5LR@125cc/hr 2. Orthostatic hypotension, history of: D5LR@125cc/hr Continue Midodrine De-escalate narcotics when patient could tolerate 3. Severe cholecystitis with cholecysto colonic fistula: s/p laparoscopic to open partial subtotal cholecystectomy with segmental transverse colectomy and resections of cholecysto colonic fistula with ESTER drains placement x2 by Dr. Vitale on 10/25 NPO with sips with D5LR@125cc/hr Levaquin IV Flagyl IV Narcotics PRN pain management Rest of the post surgical management as per primary team 4. Post operative anemia: cbc w/ auto diff to trend H/H; transfuse pRBC if hemoglobin <7.0, active bleeding, or if patient becomes symptomatic Thank you for the consultations, will continue to follow Time Spent With Patient Time: Total time spent is greater than 50% in coordination of care (as documented) at patient's floor/unit and/or counseling patient: Total time spent with greater than 50% in coordination of care (as documented) at patient's floor/unit and/or counseling patient:: Greater than 35 minutes
[2021-10-26] MEDS: INSULIN LISPRO 1 UNIT/0.01 ML UNIT SQ SCH ×3 (11:33→23:50)
[2021-10-26] MEDS: MIDODRINE 5 MG TABLET PO SCH ×2 (14:56→21:41)
[2021-10-26] MEDS: SENNOSIDES 1 TABLET PO SCH (21:41)
[2021-10-27] MEDS: DEXTROSE 5%-LR 1,000 ML IV SCH ×5 (01:11→18:35)
[2021-10-27] MEDS: HYDROmorphone 0.5 MG/0.5 ML SYRINGE IV PRN ×2 (02:09→04:24)
[2021-10-27] MEDS: HYDROCORTISONE SOD SUCC 100 MG VIAL IV SCH ×3 (06:02→22:11)
[2021-10-27] MEDS: 0.9 % SODIUM CHLORIDE 10 ML SYRINGE IV SCH ×3 (06:08→20:58)
[2021-10-27] MEDS: INSULIN LISPRO 1 UNIT/0.01 ML UNIT SQ SCH ×4 (06:13→23:33)
[2021-10-27 07:05] LABS: Hematocrit 26.6 % (40.1-51.0); Hemoglobin 8.7 g/dL (13.7-17.5); Mean Cell Volume 89.6 fL (80.0-100.0); Mean Corpuscular HGB Conc 32.7 g/dL (31.0-36.0); Mean Platelet Volume 9.8 fL (7.4-10.4); Platelet Count 218 K/mcL (140-440); RBC 2.97 M/mcL (4.63-6.08); Red Cell Distribution Width 15.1 % (11.5-14.5); WBC 14.1 K/mcL (4.5-11.0)
[2021-10-27 07:47] LABS: ALT/SGPT 57 U/L (<40); AST/SGOT 21 U/L (<40); Albumin 2.6 gm/dL (3.2-5.2); Albumin/Globulin Ratio 0.9 (1.0-2.3); Alkaline Phosphatase 115 U/L (39-117); Bilirubin,Total 0.4 mg/dL (0.1-1.0); Blood Urea Nitrogen 17 mg/dL (6-20); Calcium 8.2 mg/dL (8.6-10.4); Carbon Dioxide 28 mmol/L (22-30); Chloride 102 mmol/L (96-108); Globulin 2.9 gm/dL (2.2-3.7); Glomerular Filtration Rate 110; Glucose 181 mg/dL (70-105)
[2021-10-27] MEDS: LEVOFLOXACIN 500 MG/100 ML BAG IV SCH (07:59)
[2021-10-27] MEDS: DOCUSATE SODIUM 100 MG CAPSULE PO SCH ×2 (07:59→20:57)
[2021-10-27] MEDS: FLUDROCORTISONE 0.1 MG TABLET PO SCH (07:59)
[2021-10-27] MEDS: MIDODRINE 5 MG TABLET PO SCH ×3 (07:59→20:58)
--- NOTE | 2021-10-27 08:23 | General Surgery Progress Note ---
SUBJECTIVE Subjective Patient information: Note initiated : 10/27/21 at 8:21 am Service Date, if different from initiated Date: [] Patient: Leonides Stoner 61 y/o M admitted on 10/25/21 for Laparoscopic Cholecystectomy, Possible Conversion . Chief Complaint: [POD #2 Lap to Open Subtotal Fenestrating Cholecystectomy with Takedown and Resection of Cholecysto Colonic Fistula] Increasing pain issues overnight with increased biliary drainage the RUQ drains. He feels well otherwise and has been passing gas and ambulating. Constitutional Vitals: Vital Signs Temp Pulse Resp BP Pulse Ox 97.1 F 74 20 129/95 95 10/27/21 07:06 10/27/21 07:06 10/27/21 07:06 10/27/21 07:06 10/27/21 07:06 Period Temp Pulse Resp BP Sys/Pressley Pulse Ox Last 24 Hr 96.5 F-98.3 F 74-108 20-20 100-189/65-96 91-96 Intake and Output 10/26/21 10/27/21 10/27/21 21:59 05:59 13:59 Intake Total 1480 1006 Output Total 662 930 35 Balance 818 76 -35 Weight 211 lb 4.8 oz Intake & Output: Intake & Output 10/26/21 10/27/21 10/27/21 21:59 05:59 13:59 Intake Total 1480 1006 Output Total 662 930 35 Balance 818 76 -35 Weight 211 lb 4.8 oz Intake: IV 1000 906 Dextrose 5%-Lactated Ringers 1, 1000 906 000 ml @ 125 mls/hr IV .Q8H [facility] Rx#:[id number] Oral 480 100 Output: Drainage 12 305 35 ESTER #2 10 295 35 ESTER Drain 2 10 Urine Catheter Amount 650 625 Other: Urine Appearance Clear Urine Color Dark Yellow Exam: conversant and non toxic Head Head exam: Present atraumatic and normocephalic Respiratory Additional comments: normal respiratory effort without distress Cardiovascular Cardiovascular exam: Present RRR GI/Abdominal Additional comments: soft and non tender, non distended, drains bilious Extremities Exam Additional comments: well perfused A/P Narrative A/P Narrative: POD #2 Lap to Open Subtotal Fenestrating Cholecystectomy with Takedown and Resection of Cholecysto Colonic Fistula Increasing biliary drainage from infundibular stump He likely will require ERCP with Stent Placement to manage the infundibular stump drainage Will begin looking at transfer options today and this has been discussed with him. The anemia is likely due to surgical losses along with fluid shifts and dilutional factors, will type and cross as a precaution but doubt he has any substantial active or ongoing bleeding. Time Spent With Patient Time: Total time spent is greater than 50% in coordination of care (as documented) at patient's floor/unit and/or counseling patient:
--- NOTE | 2021-10-27 09:28 | Internal Med Progress Note ---
SUBJECTIVE Subjective Patient information: Note initiated : 10/27/21 at 9:24 am Service Date, if different from initiated Date: [] Patient: Leonides Stoner 61 y/o M admitted on 10/25/21 for Laparoscopic Cholecystectomy, Possible Conversion . Chief Complaint: [] Interval history: Patient is a 61 years old gentleman history of type 2 diabetes mellitus and orthostatic hypotension, presented on yesterday 10/25/21 with chief complaint of abdominal pain with diagnosis of severe cholecystitis with cholecysto colonic fistula. He was being taken to the OR on the same date by general surgeon Dr. Vitale who performed laparoscopic to open partial subtotal cholecystectomy with segmental transverse colectomy and resections of cholecysto colonic fistula with ESTER drains placement x2. Consultation requested for diabetes management as well as over static hypertension management. Fasting sugar this morning 215. Blood sugar level between 130s to 150s yesterday postoperatively. Hemoglobin A1c 6.0. At home patient only takes Metformin and does not use any insulin after losing a lot of weight. He also has history of orthostatic hypotension and after extensive cardiology work-up no specific diagnosis was made he was being prescribed with midodrine. Blood pressure in the range of 100s over 60s to 80s mmHg postoperatively. \ 10/27: Fasting glucose level 179 this morning. Blood pressure 129/95mmHg. c/o 2/10 aching pressure like pain in his abdomen. Denies fever chills or sweating. No bowel movements yet. Denies nausea or vomiting. Pertinent ROS: c/o 2/10 aching pressure like pain in his abdomen. Denies fever chills or sweating. No bowel movements yet. Denies nausea or vomiting. Constitutional Vitals: Vital Signs Temp Pulse Resp BP Pulse Ox 36.2 C 74 20 129/95 95 10/27/21 07:06 10/27/21 07:06 10/27/21 07:06 10/27/21 07:06 10/27/21 07:06 Period Temp Pulse Resp BP Sys/Pressley Pulse Ox Last 24 Hr 35.8 C-36.8 C 74-108 20-20 100-189/65-96 91-96 Intake and Output 10/26/21 10/27/21 10/27/21 21:59 05:59 13:59 Intake Total 1480 1006 100 Output Total 662 930 35 Balance 818 76 65 Weight 95.844 kg Intake & Output: Intake & Output 10/26/21 10/27/21 10/27/21 21:59 05:59 13:59 Intake Total 1480 1006 100 Output Total 662 930 35 Balance 818 76 65 Weight 95.844 kg Intake: IV 1000 906 100 Dextrose 5%-Lactated Ringers 1, 1000 906 000 ml @ 125 mls/hr IV .Q8H [facility] Rx#:[id number] Oral 480 100 Output: Drainage 12 305 35 ESTER #2 10 295 35 ESTER Drain 2 10 Urine Catheter Amount 650 625 Other: Urine Appearance Clear Urine Color Dark Yellow Head Head exam: Present atraumatic and normal inspection Eye Eye exam: Present normal appearance ENT ENT exam: Present mucous membranes moist, normal exam and normal external ear exam Neck Neck exam: Present normal inspection Respiratory Respiratory exam: Present normal respiratory exam Cardiovascular Cardiovascular exam: Present normal rate and rhythm GI/Abdominal GI/Abdominal exam: Present diminished bowel sounds and tenderness; Absent normal bowel sounds Additional comments: ESTER drians X2 Laparoscopic and ventral open surgical incisions on the abdomen with diminished bowel sound and tenderness to palpation. Back Exam Back exam: Present normal inspection Neurological Exam Neurological exam: Present alert and oriented X3 Skin Skin exam: Present intact and warm OBJ DATA Labs CBC & Chem 7: 10/27/21 05:14 10/27/21 05:14 Labs: Abnormal Lab Results 10/27/21 10/27/21 10/26/21 05:14 05:14 05:20 WBC 14.1 H RBC 2.97 L Hgb 8.7 L Hct 26.6 L RDW 15.1 H Anion Gap 6.0 L BUN 23 H Creatinine 0.6 L Glucose 181 H 215 H Calcium 8.2 L 8.0 L ALT 57 H 72 H Alkaline Phosphatase 119 H Total Protein 5.5 L 5.3 L Albumin 2.6 L 2.7 L Albumin/Globulin Ratio 0.9 L 10/26/21 05:20 WBC 15.2 H RBC 3.19 L Hgb 9.3 L Hct 27.9 L RDW 14.8 H Anion Gap BUN Creatinine Glucose Calcium ALT Alkaline Phosphatase Total Protein Albumin Albumin/Globulin Ratio Meds: Medications Dextrose (Dextrose 50% 50 Ml Vial) 0 ml IV UD PRN PRN Reason: Hypoglycemia Diagnostic Test (Pha) (Accu-Chek 1 Each Strip) 1 each FS Q6 [facility] Last Admin: 10/27/21 06:09 Dose: 1 each Documented by: Docusate Sodium (Docusate Sodium 100 Mg Capsule) 100 mg PO BID [facility] Last Admin: 10/27/21 07:59 Dose: 100 mg Documented by: Fludrocortisone Acetate (Fludrocortisone 0.1 Mg Tablet) 0.1 mg PO QDAY [facility] Last Admin: 10/27/21 07:59 Dose: 0.1 mg Documented by: Glucose (Dextrose 31 Gm Oral.Susp) 15 gm PO PRN PRN PRN Reason: Hypoglycemia Hydrocortisone Sodium Succinate (Hydrocortisone Sod Succ 100 Mg Vial) 100 mg IV Q8 [facility] Last Admin: 10/27/21 06:02 Dose: 100 mg Documented by: Hydromorphone HCl (Hydromorphone 0.5 Mg/0.5 Ml Syringe) 0.5 - 1 mg IV Q2HP PRN; Protocol PRN Reason: Per Pain Protocol Last Admin: 10/27/21 04:24 Dose: 1 mg Documented by: Dextrose/Lactated Ringer's (Dextrose 5%-Lactated Ringers) 1,000 mls @ 125 mls/hr IV .Q8H [facility] Last Admin: 10/27/21 07:48 Dose: Not Given Documented by: Levofloxacin (Levaquin) 500 mg in 100 mls @ 100 mls/hr IV Q24H [facility] Last Infusion: 10/27/21 09:23 Dose: Infused Documented by: Insulin Human Lispro (Insulin Lispro 1 Unit/0.01 Ml Unit) 0 unit SQ Q6 [facility]; Protocol Last Admin: 10/27/21 06:13 Dose: 2 unit Documented by: Midodrine (Midodrine 5 Mg Tablet) 5 mg PO TID [facility] Last Admin: 10/27/21 07:59 Dose: 5 mg Documented by: Ondansetron HCl (Ondansetron 4 Mg/2 Ml Vial) 4 mg IV Q6HP PRN PRN Reason: Nausea And Vomiting Senna (Sennosides 1 Tablet) 2 tab PO HS [facility] Last Admin: 10/26/21 21:41 Dose: 2 tab Documented by: Sodium Chloride (0.9 % Sodium Chloride 10 Ml Syringe) 10 ml IV Q8 [facility] Last Admin: 10/27/21 06:08 Dose: Not Given Documented by: A/P Assessment and plan (1) T2DM (type 2 diabetes mellitus): Status: Acute (2) Orthostatic hypotension: Status: Acute (3) Postoperative anemia: Status: Acute (4) Cholecystitis: Status: Acute (5) Cholecystocolonic fistula: Status: Acute Narrative A/P Narrative: Assessment and Plans: 1. T2DM: HgA1c 6.0 Hold Metformin Accu Chek q6hr Low dose correctional scale insulin q6hr Hypoglycemia protocol NPO with sips with D5LR@125cc/hr 2. Orthostatic hypotension, history of: D5LR@125cc/hr Continue Midodrine De-escalate narcotics when patient could tolerate 3. Severe cholecystitis with cholecysto colonic fistula: s/p laparoscopic to open partial subtotal cholecystectomy with segmental transverse colectomy and resections of cholecysto colonic fistula with ESTER drains placement x2 by Dr. Vitale on 10/25 NPO with sips with D5LR@125cc/hr Levaquin IV Flagyl IV Narcotics PRN pain management Rest of the post surgical management as per primary team 4. Post operative anemia: cbc w/ auto diff to trend H/H; transfuse pRBC if hemoglobin <7.0, active bleeding, or if patient becomes symptomatic Thank you for the consultations, will continue to follow Time Spent With Patient Time: Total time spent is greater than 50% in coordination of care (as documented) at patient's floor/unit and/or counseling patient: Total time spent with greater than 50% in coordination of care (as documented) at patient's floor/unit and/or counseling patient:: Greater than 35 minutes QUALITY VTE Deep Vein Thrombosis/Pulmonary Embolism Present on Admission: No
[2021-10-27] MEDS ORDERED: 0.9 % SODIUM CHLORIDE 250 ML IV SCH (15:00)
--- NOTE | 2021-10-27 17:13 | Internal Med Progress Note ---
SUBJECTIVE Subjective Patient information: Note initiated : 10/27/21 at 5:10 pm Service Date, if different from initiated Date: [] Patient: Leonides Stoner 61 y/o M admitted on 10/25/21 for Laparoscopic Cholecystectomy, Possible Conversion . Chief Complaint: [] Interval history: Patient is a 61 years old gentleman history of type 2 diabetes mellitus and orthostatic hypotension, presented on yesterday 10/25/21 with chief complaint of abdominal pain with diagnosis of severe cholecystitis with cholecysto colonic fistula. He was being taken to the OR on the same date by general surgeon Dr. Vitale who performed laparoscopic to open partial subtotal cholecystectomy with segmental transverse colectomy and resections of cholecysto colonic fistula with ESTER drains placement x2. Consultation requested for diabetes management as well as over static hypertension management. Fasting sugar this morning 215. Blood sugar level between 130s to 150s yesterday postoperatively. Hemoglobin A1c 6.0. At home patient only takes Metformin and does not use any insulin after losing a lot of weight. He also has history of orthostatic hypotension and after extensive cardiology work-up no specific diagnosis was made he was being prescribed with midodrine. Blood pressure in the range of 100s over 60s to 80s mmHg postoperatively. 10/27: Fasting glucose level 179 this morning. Blood pressure 129/95mmHg. c/o 2/10 aching pressure like pain in his abdomen. Denies fever chills or sweating. No bowel movements yet. Denies nausea or vomiting. 10/28: Added Lantus 5 unit HS and increased SSI to medium dose. Blood pressure stable. Physical exam Head: Atraumatic, normal inspection. Eyes: normal appearance, no scleral icterus. Neck: full ROM Respiratory: no respiratory distress. Cardiovascular: normal rate and rhythm, S1, S2. GI/Abdominal: Surgical incision covered by clean bandages, surgical abdominal drains present draiing serosanquinous fluid, soft, nontender, no guarding. Extremities: full range of motion, nontender. Neurological: CN II-XII intact, intact motor, intact sensation. Psychiatric: normal mood. Skin: warm, normal color Constitutional Vitals: Vital Signs Temp Pulse Resp BP Pulse Ox 97.4 F 75 20 144/98 98 10/27/21 16:00 10/27/21 16:00 10/27/21 16:10/27/21 16:00 10/27/21 16:00 Period Temp Pulse Resp BP Sys/Pressley Pulse Ox Last 24 Hr 97.1 F-98.3 F 74-108 20-20 121-189/69-98 91-98 Intake and Output 10/27/21 10/27/21 10/27/21 05:59 13:59 21:59 Intake Total 1006 1100 Output Total 930 95 489 Balance 76 1005 -489 Intake & Output: Intake & Output 10/27/21 10/27/21 10/27/21 05:59 13:59 21:59 Intake Total 1006 1100 Output Total 930 95 489 Balance 76 1005 -489 Intake: IV 906 1100 Dextrose 5%-Lactated Ringers 1, 906 1000 000 ml @ 125 mls/hr IV .Q8H [facility] Rx#:[id number] Oral 100 Output: Drainage 305 95 39 ESTER #2 295 95 37 ESTER Drain 10 2 Urine Catheter Amount 625 450 Other: Urine Appearance Clear Urine Color Dark Yellow OBJ DATA Labs CBC & Chem 7: 10/28/21 05:05 10/28/21 05:04 Labs: Abnormal Lab Results 10/27/21 10/27/21 10/26/21 05:14 05:14 05:20 WBC 14.1 H RBC 2.97 L Hgb 8.7 L Hct 26.6 L RDW 15.1 H Anion Gap 6.0 L BUN 23 H Creatinine 0.6 L Glucose 181 H 215 H Calcium 8.2 L 8.0 L ALT 57 H 72 H Alkaline Phosphatase 119 H Total Protein 5.5 L 5.3 L Albumin 2.6 L 2.7 L Albumin/Globulin Ratio 0.9 L 10/26/21 05:20 WBC 15.2 H RBC 3.19 L Hgb 9.3 L Hct 27.9 L RDW 14.8 H Anion Gap BUN Creatinine Glucose Calcium ALT Alkaline Phosphatase Total Protein Albumin Albumin/Globulin Ratio Meds: Medications Dextrose (Dextrose 50% 50 Ml Vial) 0 ml IV UD PRN PRN Reason: Hypoglycemia Diagnostic Test (Pha) (Accu-Chek 1 Each Strip) 1 each FS Q6 [facility] Last Admin: 10/27/21 11:33 Dose: 1 each Documented by: Docusate Sodium (Docusate Sodium 100 Mg Capsule) 100 mg PO BID [facility] Last Admin: 10/27/21 07:59 Dose: 100 mg Documented by: Fludrocortisone Acetate (Fludrocortisone 0.1 Mg Tablet) 0.1 mg PO QDAY [facility] Last Admin: 10/27/21 07:59 Dose: 0.1 mg Documented by: Glucose (Dextrose 31 Gm Oral.Susp) 15 gm PO PRN PRN PRN Reason: Hypoglycemia Hydrocortisone Sodium Succinate (Hydrocortisone Sod Succ 100 Mg Vial) 100 mg IV Q8 [facility] Last Admin: 10/27/21 13:47 Dose: 100 mg Documented by: Hydromorphone HCl (Hydromorphone 0.5 Mg/0.5 Ml Syringe) 0.5 - 1 mg IV Q2HP PRN; Protocol PRN Reason: Per Pain Protocol Last Admin: 10/27/21 04:24 Dose: 1 mg Documented by: Dextrose/Lactated Ringer's (Dextrose 5%-Lactated Ringers) 1,000 mls @ 125 mls/hr IV .Q8H [facility] Last Admin: 10/27/21 12:07 Dose: Not Given Documented by: Levofloxacin (Levaquin) 500 mg in 100 mls @ 100 mls/hr IV Q24H [facility] Last Infusion: 10/27/21 09:23 Dose: Infused Documented by: Sodium Chloride (Sodium Chloride 0.9%) 250 mls @ 20 mls/hr IV .[id number] [facility] Stop: 10/28/21 03:29 Last Admin: 10/27/21 15:43 Dose: Not Given Documented by: Insulin Human Lispro (Insulin Lispro 1 Unit/0.01 Ml Unit) 0 unit SQ Q6 [facility]; Protocol Last Admin: 10/27/21 12:02 Dose: 1 unit Documented by: Midodrine (Midodrine 5 Mg Tablet) 5 mg PO TID [facility] Last Admin: 10/27/21 14:26 Dose: 5 mg Documented by: Ondansetron HCl (Ondansetron 4 Mg/2 Ml Vial) 4 mg IV Q6HP PRN PRN Reason: Nausea And Vomiting Senna (Sennosides 1 Tablet) 2 tab PO HS [facility] Last Admin: 10/26/21 21:41 Dose: 2 tab Documented by: Sodium Chloride (0.9 % Sodium Chloride 10 Ml Syringe) 10 ml IV Q8 [facility] Last Admin: 10/27/21 13:48 Dose: 10 ml Documented by: A/P Narrative A/P Narrative: Assessment: 61-year-old male with a history of type 2 diabetes mellitus, o rthostatic hypotension admitted for cholecystitis complicated by a cholecysto colonic fistula. The patient initially underwent a laparoscopic surgical intervention however that was converted to an open partial fenestrating cholecystectomy with segmental transverse colectomy with excision of the cho lecysto colonic fistula Hospital medicine was consulted for diabetes mellitus and orthostatic hypotension management. #Cholecystitis with cholecysto colonic fistula #Type 2 diabetes mellitus #Orthostatic hypotension Plan -Postoperative management per general surgery -Start Lantus 5 units HS, increase SSI to medium. -Continue home fludrocortisone and midodrine 3 times daily -Patient is currently n.p.o. Time Spent With Patient Time: Total time spent is greater than 50% in coordination of care (as documented) at patient's floor/unit and/or counseling patient: QUALITY VTE Deep Vein Thrombosis/Pulmonary Embolism Present on Admission: No
[2021-10-27] MEDS: SENNOSIDES 1 TABLET PO SCH (20:58)
[2021-10-28] MEDS: DEXTROSE 5%-LR 1,000 ML IV SCH ×5 (01:54→21:02)
[2021-10-28] MEDS: HYDROCORTISONE SOD SUCC 100 MG VIAL IV SCH (05:20)
[2021-10-28] MEDS: 0.9 % SODIUM CHLORIDE 10 ML SYRINGE IV SCH ×2 (05:24→16:27)
[2021-10-28] MEDS: INSULIN LISPRO 1 UNIT/0.01 ML UNIT SQ SCH ×4 (05:28→23:20)
[2021-10-28 06:48] LABS: Hematocrit 22.9 % (40.1-51.0); Hemoglobin 7.5 g/dL (13.7-17.5); Mean Cell Volume 88.1 fL (80.0-100.0); Mean Corpuscular HGB Conc 32.8 g/dL (31.0-36.0); Mean Platelet Volume 9.8 fL (7.4-10.4); Platelet Count 171 K/mcL (140-440); WBC 6.8 K/mcL (4.5-11.0)
[2021-10-28 07:27] LABS: ALT/SGPT 37 U/L (<40); AST/SGOT 10 U/L (<40); Albumin 2.4 gm/dL (3.2-5.2); Albumin/Globulin Ratio 0.9 (1.0-2.3); Alkaline Phosphatase 94 U/L (39-117); Bilirubin,Total 0.3 mg/dL (0.1-1.0); Blood Urea Nitrogen 9 mg/dL (6-20); Calcium 7.9 mg/dL (8.6-10.4); Carbon Dioxide 28 mmol/L (22-30); Chloride 105 mmol/L (96-108); Globulin 2.6 gm/dL (2.2-3.7); Glomerular Filtration Rate 118; Glucose 168 mg/dL (70-105)
[2021-10-28] MEDS ORDERED: INSULIN GLARGINE, HUMAN 1 UNIT/0.01 ML SQ SCH (09:00)
[2021-10-28] MEDS: FLUDROCORTISONE 0.1 MG TABLET PO SCH (09:05)
[2021-10-28] MEDS: DOCUSATE SODIUM 100 MG CAPSULE PO SCH ×2 (09:05→20:14)
[2021-10-28] MEDS: LEVOFLOXACIN 500 MG/100 ML BAG IV SCH (09:05)
[2021-10-28] MEDS: MIDODRINE 5 MG TABLET PO SCH ×3 (09:05→20:14)
[2021-10-28] MEDS ORDERED: 0.9 % SODIUM CHLORIDE 250 ML IV SCH (09:40)
--- NOTE | 2021-10-28 10:13 | General Surgery Progress Note ---
SUBJECTIVE Subjective Patient information: Note initiated : 10/28/21 at 10:00 am Service Date, if different from initiated Date: [] Patient: Leonides Stoner a 61 y/o M admitted on 10/25/21 for Laparoscopic Cholecystectomy, Possible Conversion . Chief Complaint: [POD #3 Lap to Open Subtotal Fenestrating Cholecystectomy with Segmental Colonic Resection of Cholecystocolonic fistula] Leonides feels well this am and is tolerating clears, passing gas in abundance, pain control is good Constitutional Vitals: Vital Signs Temp Pulse Resp BP Pulse Ox 97.7 F 73 16 146/80 98 10/28/21 07:29 10/28/21 07:29 10/28/21 07:29 10/28/21 07:29 10/28/21 07:29 Period Temp Pulse Resp BP Sys/Pressley Pulse Ox Last 24 Hr 97.4 F-99.5 F 73-78 16-20 144-157/78-98 94-98 Intake and Output 10/27/21 10/28/21 10/28/21 21:59 05:59 13:59 Intake Total 1000 1350 806 Output Total 509 740 Balance 491 610 806 Weight 225 lb Intake & Output: Intake & Output 10/27/21 10/28/21 10/28/21 21:59 05:59 13:59 Intake Total 1000 1350 806 Output Total 509 740 Balance 491 610 806 Weight 225 lb Intake: IV 1000 1000 806 Dextrose 5%-Lactated Ringers 1, 1000 1000 806 000 ml @ 125 mls/hr IV .Q8H [facility] Rx#:[id number] Oral 350 Output: Drainage 15 ESTER #2 15 Drainage 59 ESTER #2 57 ESTER Drain 2 Urine Catheter Amount 450 725 Other: Urine Appearance Clear Uretheral ([place]) Clear Urine Color Dark Yellow Uretheral ([place]) Dark Yellow General appearance: no acute distress Exam: conversant, looks well, non toxic Head Head exam: Present atraumatic and normocephalic Respiratory Additional comments: normal respiratory effort without distress Cardiovascular Cardiovascular exam: Present RRR GI/Abdominal Additional comments: soft and non tender, non distended, drains remain bilious, dressings dry and clean Additional comments: solis in place Extremities Exam Additional comments: well perfused Neurological Exam Neurological exam: Present oriented X3 Additional comments: grossly intact A/P Narrative A/P Narrative: POD #3 Lap to Open Subtotal Fenestrating Cholecystectomy with Segmental Colonic Resection of Cholecystocolonic fistula Doing Well overall Biliary drainage from infundibular stump continues, attempts to arrange ERCP for stent placement ongoing D/C solis, decrease IVFs, continue clears for now Hbg continues to drift down and now less than 8 - will transfuse 2u PRBCs today and hold off on any Hep SQ for now. Doubt any substantial active bleeding but will need to be watched closely Re check labs in AM Time Spent With Patient Time: Total time spent is greater than 50% in coordination of care (as documented) at patient's floor/unit and/or counseling patient:
[2021-10-28] MEDS ORDERED: FUROSEMIDE 20 MG/2 ML VIAL IV ONE (10:19)
--- NOTE | 2021-10-28 16:59 | Discharge Summary ---
Discharge Provider Provider Patient information: Note initiated : 10/28/21 at 4:47 pm Service Date, if different from initiated Date: [] Patient: Leonides Stoner 61 y/o M admitted on 10/25/21 for Laparoscopic Cholecystectomy, Possible Conversion . Chief Complaint: [POD #3 Lap to Open Subtotal Fenestrating Cholecystectomy with Segmental Colonic Resection of Cholecystocolonic Fistula] Date of admission: 10/25/21 13:49 Discharge date: 10/28/21 Primary care physician: Aravind Fields DO Consults: 10/26/21 09:32 Consult to Physician [CONS] Routine Comment: diabetes, blood pressure mgmt - thank you! Consulting Provider: Dong Mcneal Reason For Exam: Physician to Consult Attending physician on discharge: Roberth Vitale Discharging clinician: Roberth Vitale COURSE Hospital Course Hospital course: Underwent surgery on 10/25/21 and was found to have severe Chronic Cholecystitis with a CholecystoColonic Fistula between the Gallbladder and the Transverse Colon. Converted from a Laparoscopic to an Open Procedure and Performed a Subtotal Fenestrating Cholecystectomy with Segmental Colonic Resection of the involved segment of Transverse Colon with drain placement. Has done well but developed a brisk bile leak predominantly on POD #2. Needs ERCP for Biliary Stent Placement which is currently unavailable in the [facility] and thus requires transfer for ERCP and Stent Placement. Additionally developed post op anemia likely secondary to postoperative oozing and dilutional factors. Has been hemodynamically stable with excellent urine output throughout but Hbg 7.5 on morning of POD#3 without any other evidence of active or ongoing blood loss and transfused 2 units of PRBCs which is ongoing at the time of transfer. Discharge diagnosis: Post Procedural Bile Leak in need of ERCP and Stent Placement Procedures: Lap to Open Fenestrating Subtotal Cholecystectomy with Segmental Colonic Resection of CholecystoColonic Fistula 10/25/21 Time Spent with Patient Time attestation: Total time spent providing and/or coordinating discharge services: Physical Examination Vital Signs Vital signs: Temp Pulse Resp BP Pulse Ox 98.7 F 66 20 152/79 95 10/28/21 16:00 10/28/21 16:00 10/28/21 16:00 10/28/21 16:00 10/28/21 16:00 General physical appearance General physical exam: well developed and no distress Eyes Eye exam: negative icteric Head Head exam IM: Present atraumatic and normocephalic Cardiovascular Cardiovascular exam IM: Present normal rate and rhythm and RRR Respiratory Respiratory exam: normal respiratory effort Abdomen Abdomen: Present soft, non tender and wound (incisional dressing in place, JPDs x 2 in RUQ ) Neurologic Neurologic: Present other (fully conversant, grossly intact ) Discharge Plan Patient/Caregiver Discharge Instructions Prescriptions: No Action midodrine 5 mg tablet 2.5 mg PO TID 0RF metformin 500 mg tablet 500 mg PO BID Qty: 180 3RF Rx Instructions: 1 tablet twice a day sulfamethoxazole-trimethoprim [Bactrim DS] 800-160 mg tablet 1 tab PO BID Qty: 30 0RF Follow Up Plan Follow up with: Roberth Vitale MD [Physician] - 11/03/21 1:00 pm Patient Disposition: er Acute [facility] Discharge Orders: Discharge Order (Routine); Ordered 10/28/21 Ordered By: Roberth Vitale Discharge Comment: Transported via ambulance w/ EMS personel Pending Pending Pending: Resuscitation Status Resuscitate (Full Code) Diet Clear Liquid Diet Start MonOct 28 1553 Diagnostic Test (Pha) (Accu-Chek 1 Each Strip) 1 each FS Q6 [facility] Last Admin: 10/28/21 05:23 Dose: 1 each Documented by: Admin: 10/27/21 23:29 Dose: 1 each Documented by: Admin: 10/27/21 17:13 Dose: 1 each Documented by: Admin: 10/27/21 11:33 Dose: 1 each Documented by: Admin: 10/27/21 06:09 Dose: 1 each Documented by: Admin: 10/26/21 23:45 Dose: 1 each Documented by: Admin: 10/26/21 17:56 Dose: 1 each Documented by: Admin: 10/26/21 11:33 Dose: 1 each Documented by: OSIEL Docusate Sodium (Docusate Sodium 100 Mg Capsule) 100 mg PO BID [facility] Last Admin: 10/28/21 09:05 Dose: 100 mg Documented by: Admin: 10/27/21 20:57 Dose: 100 mg Documented by: Admin: 10/27/21 07:59 Dose: 100 mg Documented by: Admin: 10/26/21 21:41 Dose: 100 mg Documented by: Admin: 10/26/21 09:26 Dose: 100 mg Documented by: Admin: 10/25/21 21:24 Dose: Not Given Documented by: MIKI Fludrocortisone Acetate (Fludrocortisone 0.1 Mg Tablet) 0.1 mg PO QDAY [facility] Last Admin: 10/28/21 09:05 Dose: 0.1 mg Documented by: Admin: 10/27/21 07:59 Dose: 0.1 mg Documented by: LUCY Hydromorphone HCl (Hydromorphone 0.5 Mg/0.5 Ml Syringe) 0.5 - 1 mg IV Q2HP PRN; Protocol PRN Reason: Per Pain Protocol Last Admin: 10/27/21 04:24 Dose: 1 mg Documented by: Admin: 10/27/21 02:09 Dose: 1 mg Documented by: Admin: 10/26/21 23:40 Dose: 1 mg Documented by: Admin: 10/26/21 21:33 Dose: 0.5 mg Documented by: Admin: 10/26/21 20:29 Dose: 0.5 mg Documented by: Admin: 10/26/21 07:03 Dose: 0.5 mg Documented by: Admin: 10/26/21 04:42 Dose: 0.5 mg Documented by: Admin: 10/25/21 17:56 Dose: 0.5 mg Documented by: RAMY Levofloxacin (Levaquin) 500 mg in 100 mls @ 100 mls/hr IV Q24H [facility] Last Infusion: 10/28/21 10:05 Dose: 0 mls/hr Documented by: Admin: 10/28/21 09:05 Dose: 100 mls/hr Documented by: Infusion: 10/27/21 09:23 Dose: 0 mls/hr Documented by: Admin: 10/27/21 07:59 Dose: 100 mls/hr Documented by: Infusion: 10/26/21 11:40 Dose: 0 mls/hr Documented by: Admin: 10/26/21 10:35 Dose: 100 mls/hr Documented by: OSIEL Dextrose/Lactated Ringer's (Dextrose 5%-Lactated Ringers) 1,000 mls @ 75 mls/hr IV .[id number] [facility] Last Admin: 10/28/21 16:28 Dose: Not Given Documented by: LIOR Sodium Chloride (Sodium Chloride 0.9%) 250 mls @ 20 mls/hr IV .[id number] [facility] Stop: 10/28/21 22:09 Last Admin: 10/28/21 15:28 Dose: 20 mls/hr Documented by: LIOR Insulin Glargine (Insulin Glargine, Human 1 Unit/0.01 Ml) 5 unit SQ DAILY [facility] Last Admin: 10/28/21 15:27 Dose: 5 units Documented by: LIOR Midodrine (Midodrine 5 Mg Tablet) 5 mg PO TID [facility] Last Admin: 10/28/21 09:05 Dose: 5 mg Documented by: Admin: 10/27/21 20:58 Dose: Not Given Documented by: Admin: 10/27/21 14:26 Dose: 5 mg Documented by: Admin: 10/27/21 07:59 Dose: 5 mg Documented by: Admin: 10/26/21 21:41 Dose: 5 mg Documented by: Admin: 10/26/21 14:56 Dose: 5 mg Documented by: OSIEL Plata (Sennosides 1 Tablet) 2 tab PO HS [facility] Last Admin: 10/27/21 20:58 Dose: 2 tab Documented by: Admin: 10/26/21 21:41 Dose: 2 tab Documented by: Admin: 10/25/21 21:24 Dose: Not Given Documented by: MIKI Sodium Chloride (0.9 % Sodium Chloride 10 Ml Syringe) 10 ml IV Q8 [facility] Last Admin: 10/28/21 16:27 Dose: 10 ml Documented by: Admin: 10/28/21 05:24 Dose: Not Given Documented by: Admin: 10/27/21 20:58 Dose: Not Given Documented by: Admin: 10/27/21 13:48 Dose: 10 ml Documented by: Admin: 10/27/21 06:08 Dose: Not Given Documented by: Admin: 10/26/21 23:35 Dose: Not Given Documented by: Admin: 10/26/21 14:55 Dose: 10 ml Documented by: Admin: 10/26/21 06:49 Dose: Not Given Documented by: Admin: 10/25/21 21:25 Dose: Not Given Documented by: Admin: 10/25/21 14:31 Dose: Not Given Documented by: RAMY Shift Summary 10/28/21 03:30 Shift Summary by Terry Shen Pt has stated no to very mild ABD pain all shift. No N/V. No BM. D5LR infusing to his RT F/A @ 125ml/hr. Midline ABD dressing - C,D,I. 2x ESTER RT ABD #1 scant output, #2 emptied x3 - Dk yellow green fluid. Clements cath w/ 725ml out clear Dk yellow urine. Pt has been up AMB in the fields x1 to ICU door, and back to bed - gait very stable w/ FWW & SBA. VS - temp sl elevated - all else WNL on R.A.. HS Midodrine held - B/P normal (144/78) @ HS. He is A&O x4, calm, pleasant, & cooperative. Initialized on 10/28/21 03:30 - END OF NOTE
[2021-10-28] MEDS: SENNOSIDES 1 TABLET PO SCH (20:14)
== END 2021-10-28 23:36 | disposition short-term general hospital (02) | DRG 414 ==
LOC: SUR 07:01 → MEDSUR 13:49
PROVIDERS: ADMIT Surgery Surgical Critical Care; ATTEND Surgery Surgical Critical Care